=== PATIENT | female | born 1945 | race Caucasian/White ===

== ENCOUNTER → 2018-02-10 10:37 | Outpatient (CLI) | payer MEDICARE, OTHER, SELFPAY ==
[2018-02-10 12:21] LABS: Absolute Lymphocyte Count 0.89 X10^3/ul (0.83-4.51); Absolute Neutrophil Count 2.5 X10^3/uL (2.0-7.7); Basophil# 0.03 X10^3/uL; Basophil% 0.7 % (0-1); Eosinophil# 0.25 X10^3/uL; Eosinophils% 6.1 % (0-5); Hematocrit 44.1 % (37-47); Hemoglobin 15.7 g/dl (12.0-15.0); Lymphocyte # 0.89 X10^3/ul (4.0); Lymphocyte % 21.8 % (19-41); Mean Corp Hgb Conc 35.6 g/gl (32-36); Mean Corpuscular Volume 98.2 fL (81-99); Mean Platelet Vol. 10.5 fl (6.2-12.0); Monocyte# 0.37 X10^3/uL; Neutrophil # 2.54 X10^3/uL (2.7-7.7); Neutrophil % 62.2 % (47-70); Platelet Count 60 K/mm3 (150-450); RBC Distribution Width CV 13.6 % (11.6-14.6); RBC Distribution Width SD 47.8 fl (35.1-43.9); Red Blood Count 4.49 M/mm3 (4.2-5.4); White Blood Count 4.1 K/mm3 (4.4-11.0)
[2018-02-10 12:30] LABS: POSITIVE COUNT NO; POSITIVE DIFFERENTIAL NO; POSITIVE MORPHOLOGY NO
[2018-02-10 12:50] LABS: ALB/GLOB Ratio 0.8 RATIO (0.9-2.4); AST(SGOT) 37 U/L (15-37); Alanine Aminotransfer ALT/SGPT 22 U/L (13-56); Alkaline Phosphatase 106 U/L (45-117); Anion Gap 7 (5-15); BUN 10 mg/dL (7-18); BUN/Creat Ratio 13.6 RATIO (10-20); Calcium,Total 8.5 mg/dL (8.5-10.1); Chloride 106 mmol/L (98-107); Creatinine, Serum 0.73 mg/dL (0.55-1.02); EST Glomerular Filtration Rate 82 mL/min (>60); Est Glom Filt Rate - Afr Amer 99 mL/min (>60); Globulin 3.8 g/dL (2.2-4.2); Glucose 200 mg/dL (74-106); Potassium 3.6 mmol/L (3.5-5.1); Protein, Total 6.8 g/dL (6.4-8.2); Sodium Level 140 mmol/L (136-145); T4 Free Direct 1.05 ng/dL (0.76-1.46); Thyroid Stim Hormone (TSH) 5.91 uIU/mL (0.358-3.74)
== END ==
PROVIDERS: Family Provider Family Medicine; PCP Family Medicine; Visit Provider Family Medicine
DX: E03.9 Hypothyroidism, unspecified (principal); K74.60 Unspecified cirrhosis of liver; D69.6 Thrombocytopenia, unspecified
CPT/HCPCS: 36415; 80053; 84439; 84443; 85025

== ENCOUNTER → 2018-03-04 09:46 | Outpatient (CLI) | payer MEDICARE, OTHER, SELFPAY ==
--- NOTE | 2018-03-04 09:52 | ECHOD_ITS ---
Reason For Study: MURMUR Procedure This was a 2D Doppler, Color Flow transthoracic echocardiogram. Exam performed in department. Left Ventricle Normal size and thickness. The estimated ejection fraction is 65 %. Normal diastology for age. No regional wall motion abnormalities noted. Right Ventricle Normal size and thickness. Normal systolic function. Atria The left atrium is mildly enlarged. Normal right atrium. Normal atrial septum. Mitral Valve Mild diffuse mitral valve thickening. Mild mitral annular calcification extending into the posterior leaflet. Trivial mitral valve insufficiency. Tricuspid Valve Normal tricuspid valve. Mild (1+) tricuspid valve insufficiency. Right ventricular systolic pressure estimated to be 42 mmHg. Mild pulmonary hypertension. Aortic Valve Trisinus/trileaflet aortic valve. Moderate focal aortic valve thickening. Moderate focal aortic valve calcification. Moderate restriction of the aortic valve. Possible fusion b/w left and non- coronary cusps. Moderate aortic stenosis. Peak aortic valve gradient 46 mmHg. Mean aortic valve gradient 24 mmHg. Calculated aortic valve area (continuity equation) is 1.0 cm2. Pulmonic Valve Normal pulmonic valve. Mild (1+) pulmonic valve insufficiency. Great Vessels Normal aortic root. Normal arch. Normal inferior vena cava. Inferior vena cava collapse with sniff. Pericardium/Pleural No pericardial effusion. MMode/2D Measurements & Calculations LVIDd: 4.5 cm IVSd: 0.91 cm LVOT diam: 2.1 cm LVIDs: 2.7 cm LVPWd: 0.91 cm LVOT area: 3.4 cm2 RVDd: 3.4 cm FS: 39.7 % Ao root diam: 3.5 cm LAV(MOD-bp): 69.0 ml LA A4 area: 21.1 cm2 LA dimension: 3.9 cm LAV(MOD-bp) Indexed: 40.2 ml/m2 LAV(MOD-sp2): 66.5 ml LAV(MOD-sp4): 65.1 ml RA A4 area: 18.3 cm2 Doppler Measurements & Calculations MV E max rajesh: 100.2 cm/sec Lat Peak E' Rajesh: 9.1 cm/sec Med Peak E' Rajesh: 6.0 cm/sec MV A max rajesh: 66.5 cm/sec E/E' lat: 11.0 E/E' med: 16.6 MV E/A: 1.5 Ao V2 max: 338.4 cm/sec LV V1 max: 94.9 cm/sec SV(LVOT): 91.8 ml Ao max P.8 mmHg LV V1 max P.6 mmHg Ao V2 mean: 235.8 cm/sec LV V1 mean P.1 mmHg Ao mean P.4 mmHg LV V1 mean: 70.2 cm/sec Ao V2 VTI: 88.8 cm LV V1 VTI: 26.7 cm STEPHON(I,D): 1.0 cm2 STEPHON(V,D): 0.96 cm2 PA V2 max: 83.3 cm/sec PI end-d rajesh: 95.9 cm/sec TR max rajesh: 290.4 cm/sec TR max P.8 mmHg Interpretation Summary The estimated ejection fraction is 65 %. Normal diastology for age. The left atrium is mildly enlarged. Trivial mitral valve insufficiency. Mild (1+) tricuspid valve insufficiency. Right ventricular systolic pressure estimated to be 42 mmHg. Mild pulmonary hypertension. Moderate to severe aortic stenosis. Possible fusion b/w left and non-coronary cusps. Peak aortic valve gradient 46 mmHg. Mean aortic valve gradient 24 mmHg. Calculated aortic valve area (continuity equation) is 1.0 cm2. There is no comparison study available. Ordering Physician: Jorge L Sage Referring Physician: Ruben Lackey Performed By: Ginny Alexandra, BIB, RVT
== END ==
PROVIDERS: Family Provider Family Medicine; PCP Family Medicine; Visit Provider Family Medicine
DX: R01.1 Cardiac murmur, unspecified (principal); K76.6 Portal hypertension
CPT/HCPCS: 93306

== ENCOUNTER 2018-05-15 20:09 | Emergency (ER) | payer MEDICARE, OTHER, SELFPAY ==
[2018-05-15 20:10] VITALS: BP 110/50; PULSE 73; RESP 15; TEMP 36.9; BMI 30.1
--- NOTE | 2018-05-15 20:27 | ED.VISSUMM ---
- ER Visit Summary Date of Service: 05/15/18 Chief Complaint: Bilateral leg pain History of Present Illness: The patient is a 72 F who has pain in the bilateral legs. She states it started with the left leg. She has pain from the foot all the way up to the hip. It became swollen. She states that the symptoms then became prominent on the right-hand side. She also noted some swelling. She has not had a fever. She has no history of DVTs. No shortness of breath or CHF history. No fevers. She does have a history of extremity pain which was caused by neuropathy Physical Examination: Vital signs are reviewed. Bilateral leg exam reveals tenderness on both sides. No edema. No erythema. The exam is unremarkable Test Results: None performed Emergency Department Course and Treatment: Ultrasound is unavailable at this time. Patient has no signs of cellulitis. I will give her 1 oxycodone for pain here. She will come back tomorrow morning for a venous duplex ultrasound of her lower remedies Treatment Plan: Discharge Disposition: [] Impression: Bilateral leg pain This note was generated with [employer] dictation software. It may contain incorrect words, spelling, and punctuation that were not noted in review of the chart prior to signing ED Disposition - Plan for ED Patient: Chief Complaint: Other, Pain/Inj Referrals: Jorge L Sage MD [Primary Care Provider] -
--- NOTE | 2018-05-15 20:28 | ED.DEP ---
ED Disposition - Plan for ED Patient: Disposition: Home or Assisted Living Chief Complaint: Other, Pain/Inj Instructions: ED Chronic Pain Management Referrals: Jorge L Sage MD [Primary Care Provider] -
[2018-05-15] MEDS: oxyCODONE 5 MG Tablet PO (20:31)
[2018-05-15 20:51] VITALS: BP 143/79; PULSE 82; RESP 22; O2SAT 97
--- NOTE | 2018-05-15 20:52 | ED.RN ---
THIS NURSE REVIEWED D/C INSTRUCTIONS WITH PT. PT VERBALIZED UNDERSTANDING OF INSTRUCTIONS. PT DENIES FURTHER NEEDS OR QUESTIONS AT THIS TIME.
== END 2018-05-15 20:53 | disposition home or self-care (01) ==
LOC: ED 20:39
PROVIDERS: Emergency Provider Emergency Medicine; Family Provider Family Medicine; PCP Family Medicine
DX: M79.605 Pain in left leg (principal); M79.604 Pain in right leg
CPT/HCPCS: 99283

== ENCOUNTER → 2018-05-17 08:01 | Outpatient (CLI) | payer MEDICARE, OTHER, SELFPAY ==
--- NOTE | 2018-05-17 08:08 | VDLE_ITS ---
Reason For Study: LEG PAIN RIGHT LEFT GSV is normal. GSV is normal. CFV is compressible, spontaneous, phasic, CFV is compressible, spontaneous, phasic, competent and demonstrates normal competent, and demonstrates normal augmentation. augmentation. FV is compressible, spontaneous, phasic, FV is compressible, spontaneous, phasic, competent and demonstrates normal competent and demonstrates normal augmentation. augmentation. POP V is compressible, spontaneous, phasic, POP V is compressible, spontaneous, phasic, competent and demonstrates normal competent and demonstrates normal augmentation. augmentation. T/P Trunk is compressible. T/P Trunk is compressible. PTV is compressible. PTV is compressible. RT PerV is compressible. LT PerV is compressible. Procedure Exam performed in department. A preliminary report was called and/or faxed to Dr. Sage. Interpretation Summary Deep veins of the lower extremities are bilaterally patent and compressible segmentally. There is no evidence of deep vein thrombosis on either side. Valvular competence appears intact within the proximal deep venous systems bilaterally. The greater saphenous veins appear bilaterally patent and compressible segmentally. Ordering Physician: Cy Lozoya Referring Physician: Jorge L Sage Performed By: Aleida Forman RVT
== END ==
PROVIDERS: Family Provider Family Medicine; PCP Family Medicine; Visit Provider Emergency Medicine
DX: M79.605 Pain in left leg (principal); M79.604 Pain in right leg
CPT/HCPCS: 93970

== ENCOUNTER → 2018-05-24 11:16 | Outpatient (CLI) | payer MEDICARE, OTHER, SELFPAY ==
[2018-05-24 15:53] LABS: Absolute Lymphocyte Count 0.85 X10^3/ul (0.83-4.51); Absolute Neutrophil Count 2.8 X10^3/uL (2.0-7.7); Basophil# 0.02 X10^3/uL; Basophil% 0.5 % (0-1); Eosinophils% 4.7 % (0-5); Hematocrit 43.2 % (37-47); Hemoglobin 15.2 g/dl (12.0-15.0); Lymphocyte # 0.85 X10^3/ul (4.0); Lymphocyte % 20.1 % (19-41); Mean Corp Hgb Conc 35.2 g/gl (32-36); Mean Corpuscular Hgb 34.7 pg (27.0-32.0); Mean Corpuscular Volume 98.6 fL (81-99); Mean Platelet Vol. 10.5 fl (6.2-12.0); Monocyte# 0.38 X10^3/uL; Neutrophil # 2.77 X10^3/uL (2.7-7.7); Neutrophil % 65.5 % (47-70); Platelet Count 106 K/mm3 (150-450); RBC Distribution Width CV 13.9 % (11.6-14.6); RBC Distribution Width SD 48.9 fl (35.1-43.9); Red Blood Count 4.38 M/mm3 (4.2-5.4); White Blood Count 4.2 K/mm3 (4.4-11.0)
[2018-05-24 15:58] LABS: POSITIVE COUNT NO; POSITIVE DIFFERENTIAL NO; POSITIVE MORPHOLOGY NO
[2018-05-24 16:13] LABS: Hemoglobin A1c 7.4 % (4.2-6.3)
[2018-05-24 16:16] LABS: ALB/GLOB Ratio 0.7 RATIO (0.9-2.4); AST(SGOT) 45 U/L (15-37); Alanine Aminotransfer ALT/SGPT 26 U/L (13-56); Alkaline Phosphatase 115 U/L (45-117); Anion Gap 6 (5-15); BUN 8 mg/dL (7-18); BUN/Creat Ratio 9.6 RATIO (10-20); Calcium,Total 8.8 mg/dL (8.5-10.1); Chloride 104 mmol/L (98-107); Creatinine, Serum 0.83 mg/dL (0.55-1.02); EST Glomerular Filtration Rate 71 mL/min (>60); Est Glom Filt Rate - Afr Amer 86 mL/min (>60); Globulin 4.5 g/dL (2.2-4.2); Glucose 204 mg/dL (74-106); Potassium 3.6 mmol/L (3.5-5.1); Protein, Total 7.5 g/dL (6.4-8.2); Sodium Level 142 mmol/L (136-145); T4 Free Direct 1.59 ng/dL (0.76-1.46); Thyroid Stim Hormone (TSH) 1.66 uIU/mL (0.358-3.74)
== END ==
PROVIDERS: Family Provider Family Medicine; PCP Family Medicine; Visit Provider Family Medicine
DX: K74.60 Unspecified cirrhosis of liver (principal); E11.65 Type 2 diabetes mellitus with hyperglycemia; R60.9 Edema, unspecified
CPT/HCPCS: 36415; 80053; 83036; 84439; 84443; 85025

== ENCOUNTER → 2018-05-28 08:54 | Outpatient (CLI) | payer MEDICARE, OTHER, SELFPAY ==
--- NOTE | 2018-05-28 08:58 | US_ITS ---
STUDY: ABDOMINAL ULTRASOUND - RIGHT UPPER QUADRANT REASON FOR VISIT: Female, 72 years old. Elevated LFTs TECHNIQUE: Ultrasound evaluation of the right upper quadrant was performed with real-time and static martinez-scale imaging. TECHNICAL QUALITY: Limited. Examination limited due to the patient?s condition. COMPARISON: None. FINDINGS: Liver: The liver measures 14.1 cm. There is a heterogeneous echogenicity of the liver. The bile ducts are within normal limits. There is hepatic color flow. The direction of portal flow is hepatopetal. There is no demonstrated mass lesion. Gallbladder: The patient is status post cholecystectomy. Common Bile Duct (C.B.D.): The common bile duct was not visualized. Pancreas: Normal size of the head, body and tail of the pancreas. There is normal echogenicity of the pancreas. There is no demonstrated pancreatic mass or cyst. Right Kidney: Normal size of the right kidney. The right kidney measures 10.2 x 5.1 x 4.4 cm. Normal renal cortex. The right cortex measures 1.4 cm. There is no demonstrated renal mass or cyst. There is no right hydronephrosis. US/Liver IMPRESSION: Heterogeneous liver, no discrete lesion. Previous cholecystectomy Electronically Signed: Damian Siegel MD at 12:08 EDT , Service support ,
== END ==
PROVIDERS: Family Provider Family Medicine; PCP Family Medicine; Visit Provider Internal Medicine Gastroenterology
DX: K74.60 Unspecified cirrhosis of liver (principal)
CPT/HCPCS: 76705

== ENCOUNTER → 2018-10-14 09:45 | Outpatient (CLI) | payer MEDICARE, OTHER, SELFPAY ==
--- NOTE | 2018-10-14 14:22 | PFTCOMP ---
COMPLETE PULMONARY FUNCTION TEST INTERPRETATION Brief HPI: Patient is a 73 year old female, currently under the care of Dr. Sage, who presents to [facility] for complete pulmonary function tests secondary to diagnosis of dyspnea. Respiratory therapist reports good effort and reproducible results. Interpretation: Forced expiration spirometry shows no large airways obstructive ventilatory defect with an FEV1 of 104% predicted. There is no significant bronchodilator response by strict ATS criteria. Spirograms are of good quality and plateau slowly, indicating slowly emptying areas of the lungs. The respiratory flow volume loop shows decreased expiratory flow rates at high lung volumes consistent with small airways obstruction. Lung volumes by body plethysmography show a normal total lung capacity at 4.43 L, 101% predicted. All other lung volumes are within normal limits. Diffusion capacity by carbon monoxide is decreased at 42% predicted. The airway resistance is normal. No previous pulmonary function tests were available for review. Impression: Isolated reduction in diffusion capacity consistent with a possible pulmonary vascular disorder. Consider echocardiogram if not completed previously.
--- OUTSIDE RECORDS SUMMARY | 2018-11-30 03:42 | XMS RPT_ITS ---
:1945 Author Organization [facility] Support Name Relationship Address Phone RUTH ELLIOTT Unavailable [address] + [place] [address] HUSSAIN ELLIOTT Unavailable [address] [facility] + [place] [address] R Unavailable Unavailable Unavailable EARLRUTH Unavailable [address] + [place] [address] HUSSAIN ELLIOTT Unavailable [address] + [place] [address] R Unavailable Unavailable Unavailable EARL RUTH Unavailable [address] + [place] [address] HUSSAIN ELLIOTT Unavailable [address] [facility] + [place] [address] R Unavailable Unavailable Unavailable EARLRUTH Unavailable [address] + [place] [address] HUSSAIN ELLIOTT Unavailable [address] [facility] + [place] [address] R Unavailable Unavailable Unavailable RUTH GONZALEZ Unavailable [address] + [place] [address] R Unavailable Unavailable Unavailable RUTH GONZALEZ Unavailable [address] + [place] [address] R Unavailable Unavailable Unavailable RUTH GONZALEZ Unavailable [address] + [place] [address] R Unavailable Unavailable Unavailable RUTH GONZALEZ Unavailable [address] + [place] [address] R Unavailable Unavailable Unavailable RUTH GONZALEZ Unavailable [address] + [place] [address] R Unavailable Unavailable Unavailable LISA, RUTH Unavailable [address] + [place] [address] R Unavailable Unavailable Unavailable R Unavailable Unavailable Unavailable ARIES, CLIVE Unavailable . + [place] [address] LISA RUTH Unavailable [address] + [place] [address] R Unavailable Unavailable Unavailable ARIES, CLIVE Unavailable [address] [place] + [place] [address] LISA RUTH Unavailable [address] + [place] [address] R Unavailable Unavailable Unavailable ARIES, CLIVE Unavailable . + [place] [address] LISA RUTH Unavailable [address] + [place] [address] R Unavailable Unavailable Unavailable ARIES, CLIVE Unavailable Unavailable + [place] [address] LISA RUTH Unavailable [address] + [place] [address] R Unavailable Unavailable Unavailable ARIES, CLIVE Unavailable . + [place] [address] LISA RUTH Unavailable [address] + [place] [address] R Unavailable Unavailable Unavailable ARIES, CLIVE Unavailable [address] [place] + [place] [address] LISA RUTH Unavailable [address] + [place] [address] R Unavailable Unavailable Unavailable ARIES, CLIVE Unavailable [address] [place] + [place] [address] LISA RUTH Unavailable [address] + [place] [address] R Unavailable Unavailable Unavailable Care Team Providers Name Role Phone Donal Christie Attending Unavailable Jorge L Sage Referring Unavailable Ernst Anderson D.O. Attending Unavailable Jorge L Sage Referring Unavailable Jorge L Sage Attending Unavailable Jorge L Sage Primary Care Unavailable Ruben Lackey Attending Unavailable Ruben Lackey Referring Unavailable Jorge L Sage Primary Care Unavailable Jorge L Sage Attending Unavailable Alona, Jorge L Primary Care Unavailable Alona, Jorge L Attending Unavailable Alona, Jorge L Primary Care Unavailable Sharona Andres Torrez Attending Unavailable Alona, Jorge L Referring Unavailable Alona, Jorge L Primary Care Unavailable Amari Guzman Attending Unavailable Alona, Jorge L Referring Unavailable Alexis Martinez Attending Unavailable Alona, Jorge L Primary Care Unavailable Lowe, Cy Attending Unavailable Lowe, Cy Attending Unavailable Lowe, Cy Referring Unavailable Alona, Jorge L Primary Care Unavailable Alona, Jorge L Attending Unavailable Alona, Jorge L Primary Care Unavailable Ruben Lackey Attending Unavailable Ruben Lackey Referring Unavailable Alona, Jorge L Primary Care Unavailable Katerin Ruth Attending Unavailable MeganAmari segura Attending Unavailable Alona, Jorge L Referring Unavailable Alona, Jorge L Primary Care Unavailable Alona, Jorge L Attending Unavailable Alona, Jorge L Referring Unavailable Alona, Jorge L Attending Unavailable Alona, Jorge L Referring Unavailable Alona, Jorge L Primary Care Unavailable PROBLEMS PROBLEMS DATE TYPE CONDITION / CODE ATTENDING STATUS SOURCE 11/03/2018 Unknown R06.00 - Dyspnea, Alona, Jorge L Active [facility] unspecified / Community R06.00(ICD-10) Hospital Repository 09/10/2018 Unknown R06.02 - Shortness Megan, Childs Active [place] of breath / Community R06.02(ICD-10) Hospital Repository 09/10/2018 Unknown I35.0 - Megan, Amari Active [facility] Nonrheumatic [facility] aortic (valve) Hospital stenosis / Repository I35.0(ICD-10) 09/10/2018 Unknown I10 - Essential Megan, Childs Active [facility] (primary) [facility] hypertension / Hospital I10(ICD-10) Repository 02/25/2018 Unknown E03.9 - Alona Jorge L Active [place] Hypothyroidism, [facility] unspecified / Hospital E03.9(ICD-10) Repository 03/26/2018 Unknown R01.1 - Cardiac Alexis Martinez Active [place] murmur, [facility] unspecified / Hospital R01.1(ICD-10) Repository PROCEDURES PROCEDURES No Procedure Records FoundRESULTS RESULTS CHEST PA AND LATERAL Observed: 11/03/2018 Status: F Source: [place] 3:03 PM [facility] Imaging Services [address] [place] [address] Chest PA and Lateral MR#: [id number] Acct: [id number] Name: PEPPER ELLIOTT Rep #: [id number] : 1945 F 73 From: Celio Alexander MD PCP: Jorge L Sage MD Status: REG CLI Study: Chest PA and Lateral Date of Exam: 11/03/18 Exam# [id number] Ordering Dr: Jorge L Sage MD STUDY: X-RAY CHEST REASON FOR EXAM: Female, 73 years old. Shortness of breath, chest pain on deep inspiration. TECHNIQUE: PA and lateral chest COMPARISON: None. FINDINGS: The lungs are clear. Mild hyperlucency may be a factor of technique and good inspiratory effort. Correlate smoking history for possible mild COPD. Normal cardiomediastinal silhouette, mikal and pleural margins. No acute osseous or upper abdominal process. Mild thoracic kyphosis. RAD/Chest PA and Lateral IMPRESSION: No acute cardiopulmonary process. Electronically Signed: Celio Alexander MD at 15:34 EST Tel , Service support , CC: Jorge L Sage MD [employer] Supervisor: Signed PULMONARY FUNCTION Observed: 10/15/2018 Status: F Source: [facility] REPORT COMP 6:02 AM [facility] REPOSITORY [facility] Pulmonary Services/Neurology [address] [place] [address] MR#: [id number] Acct: [id number] Name: PEPPER ELLIOTT Rep #: [id number] : 1945 73 From: Donal Christie MD Referring Dr: Jorge L Sage MD Status: REG CLI Ordering Dr: Date: Location: [facility] Sex: F C COMPLETE PULMONARY FUNCTION TEST INTERPRETATION Brief HPI: Patient is a 73 year old female, currently under the care of Dr. Sage, who presents to [facility] for complete pulmonary function tests secondary to diagnosis of dyspnea. Respiratory therapist reports good effort and reproducible results. Interpretation: Forced expiration spirometry shows no large airways obstructive ventilatory defect with an FEV1 of 104% predicted. There is no significant bronchodilator response by strict ATS criteria. Spirograms are of good quality and plateau slowly, indicating slowly emptying areas of the lungs. The respiratory flow volume loop shows decreased expiratory flow rates at high lung volumes consistent with small airways obstruction. Lung volumes by body plethysmography show a normal total lung capacity at 4.43 L, 101% predicted. All other lung volumes are within normal limits. Diffusion capacity by carbon monoxide is decreased at 42% predicted. The airway resistance is normal. No previous pulmonary function tests were available for review. Impression: Isolated reduction in diffusion capacity consistent with a possible pulmonary vascular disorder. Consider echocardiogram if not completed previously. 10/15/18 0602 <Electronically signed by Donal Christie MD> Date Donal Christie MD CC: Donal Christie MD; Jorge L Sage MD Date Dictated: 10/14/181421 Date Transcribed: 10/14/181421 [employer] Supervisor: JUAN Signed CARDIOLOGY VISIT Observed: 09/10/2018 Status: F Source: [place] REPORT 12:05 PM [facility] REPOSITORY [facility] [address] [place] [address] OFFICE VISIT Date of Service: 09/10/18 MR#: [id number] Acct: [id number] Name: PEPPER ELLIOTT Rep #: [id number] : 1945 Provider: Amari Guzman MD Age/Sex: 73/F [place] [facility] [place] Signed [facility] Chief Complaint: Follow up Details: PEPPER ELLIOTT, is a 73 F who presents to the office today for a follow-up visit. She is a lady with a history of liver cirrhosis, scleroderma, diabetes mellitus. She was recently diagnosed with aortic valve stenosis. She denies any dizziness or diaphoresis or near syncope or syncope she has been short of breath with exertion. She has been compliant with her medications. She has not had any palpitations recently. She also denies any neck arm or jaw discomfort suggest angina. She tells me that she has not had any pulmonary function tests. Her physical exam today demonstrates clear lung coffey regular rate and rhythm and no pedal edema her echocardiogram was reviewed. Intake Vital Signs09/10/18 Height 5 ft 1 in Intake Visit Reasons: 6 M FU Allergies latex Adverse Reaction (Unknown, Verified 09/10/18 10:15) Unknown nadolol Adverse Reaction (Unknown, Verified 09/10/18 10:15) Swelling Medications AMILoride/Hydrochlorothiazide [MODURETIC 5-50 MG Tab] 1 tab PO DAILY 09/14/14 [History Confirmed 09/10/18] lactulose 10 gram/15 mL oral solution 20 g PO BID 03/17/18 [History Confirmed 09/10/18] levothyroxine 100 mcg tablet 100 mcg PO QDAY 03/17/18 [History Confirmed 09/10/18] propranolol ER 60 mg capsule,24 hr,extended release 60 mg PO QDAY 03/17/18 [History Confirmed 09/10/18] glimepiride 1 mg tablet 1 mg PO QAM 09/10/18 [History Confirmed 09/10/18] [facility] Medical History Liver cirrhosis secondary to GARCIA (Chronic) Secondary pulmonary arterial hypertension (Chronic) Non-rheumatic aortic stenosis (Chronic) Essential (primary) hypertension (Chronic) Shortness of breath (Chronic) Anemia (Chronic) Arthritis (Chronic) Asthma (Chronic) Carpal tunnel syndrome (Chronic 1986) Chronic fatigue syndrome (Chronic) Cirrhosis, non-alcoholic (Chronic) Cognitive impairment (Chronic) Colitis (Chronic) Diabetes mellitus (Chronic) Esophageal varices with bleeding (Chronic) GERD (gastroesophageal reflux disease) (Chronic) Gallstone (Chronic) Headache (Chronic) Hives (Chronic) Hypothyroidism (Chronic) Liver disease (Chronic) Neuropathy (Chronic) Osteoarthritis (Chronic) Portal hypertension (Chronic) Systolic murmur (Chronic) Thrombocytopenia (Chronic) Vertigo (Chronic) Surgical History History of carpal tunnel release (Resolved) Hx of cholecystectomy (Resolved) Family History Mother CAD (coronary artery disease) Breast cancer Sister Breast cancer Aunt Breast cancer Social History Smoking Status: Former smoker alcohol intake: never caffeine: Yes Type: coffee Number of servings: 5 what type of physical activity do you participate in: none ROS Const Const: Positive for fatigue; negative for weakness, difficulty sleeping, frequent falls, excessive sweating or headache(s) Eyes Eyes: Negative for loss of peripheral vision, transient loss of vision, blurry vision, tunnel vision or double vision ENT ENT: Negative for headache(s), dizziness, Nosebleed/epistaxis or balance problems Cardio Chest Pain: No Palpitations: No Edema: None Muscle aches with walking: None Resp Respiratory: Positive for SOB with activity and SOB at rest; negative for SOB orthopnea\SOB lying down, paroxysmal nocturnal dyspnea or Cough Additional Details: C/O increase SOB since last OV. GI GI: Negative nausea, heartburn, black,tarry stools or vomiting : Negative for hematuria Musc Musc: Negative for balance problems, muscle aches/ myalgia, muscle weakness or joint pain Skin Skin: Negative non-healing lesions, unusual bruising or rash Neuro Neuro: Negative for weakness, frequent falls, headache(s), blurry vision, double vision, dizziness, lightheadedness, orthostatic symptoms, near syncope, syncope or lack of coordination [place] Hematologic/Lymphatic: Negative for easy bruising or easy bleeding Endo Endo: Positive for fatigue; negative for excessive sweating or increased thirst/drinking Psych Psych: Negative for anxiety or depression Allergy Allergy/Immunology: Negative for hives, Negative for rash Cardiology Exam Const Appearance: cooperative, healthy appearing, well developed, well groomed and no acute distress Nutritional Appearance: well nourished and average body habitus Orientation: alert, awake and oriented x3 Head Head: normal to inspection, normocephalic and atraumatic Ears: hearing grossly normal bilaterally and external ears normal Nose: external nose normal, nasal mucous membranes and turbinates normal, nares normal, septum normal, no nasal discharge Face and Sinus: face symmetric Mouth: oral mucosae normal, tongue normal, oropharynx normal and moist mucous membranes Teeth and gingiva: dentition normal Throat: posterior oropharynx normal, tonsils normal and uvula midline Eyes General: appearance normal, both eyes and all related structures Eyelids: eyelids normal Conjunctivae: conjunctivae normal Pupils: PERRL, normal by confrontation and accommodation normal EOM: EOM intact bilaterally Neck Neck: normal visual inspection, trachea midline and no JVD JVD: +5 Carotids: normal carotid upstroke and bounding pulses Chest Chest inspection: normal inspection of the chest, symmetric chest movement and normal respiratory effort Auscultation: Bilateral: Clear to Auscultation Cardio Palpation: normal PMI Rate: regular rate Rhythm: regular rhythm Heart sounds: S1 normal, S2 normal and normal, physiologic split S2; negative rub, gallop or murmur GI GI: normal to inspection, soft, no hepatosplenomegaly and bowel sounds present Neuro General: alert, awake, oriented x3, no focal sensory deficit, gait normal and moves all extremities Skin Skin: no rashes or lesions noted Extremities Pulses: Normal: Right Femoral Pulse, Left Femoral Pulse, Right Dorsalis Pedis Pulse, Left Dorsalis Pedis Pulse, Right Posterior Tibial Pulse, Left Posterior Tibial Pulse, Right Radial Pulse, Left Radial Pulse Lower Extremity Edema: None: Bilateral Musculoskel Musculoskeletal: No joint tenderness Psych Psychological: normal affect Assessment AND Plan 1. Non-rheumatic aortic stenosis I35.0 Plan She appears to have minimally symptomatic moderate aortic stenosis. Her valve area is 1.0 cm square though her mean gradient is 24 mmHg. My recommendation at this time will be for us to continue watchful waiting and repeat echocardiogram in approximately 3-6 months. Her pulmonary artery pressures also do not appear to be significantly elevated she is on a low-dose diuretic. 2. Essential (primary) hypertension I10 Plan She does have a history of hypertension and will continue to monitor her and manage her with her current medications without as making any changes. 3. Shortness of breath R06.02 Plan She does have shortness of breath. I suspect the etiology of the above is multifactorial I would recommend that we obtain a chest x-ray and CT scan and may be pulmonary function test. I would prefer the above to you and will see her again in approximately 4 months. Plan Detail Follow Up 4 Months (r) Coding Level of Care Code Off vis,est,level 4 Diagnoses Non-rheumatic aortic stenosis I35.0 Essential (primary) hypertension I10 Shortness of breath R06.02 Coding Level of Care Code Off vis,est,level 4 Diagnoses Non-rheumatic aortic stenosis I35.0 Essential (primary) hypertension I10 Shortness of breath R06.02 09/10/18 1205 <Electronically signed by Amari Guzman MD> Date [facility] Signature: Date (if applicable) CC: Jorge L Sage MD LIVER Observed: 05/28/2018 Status: F Source: [place] 8:58 AM [facility] REPOSITORY [facility] Imaging Services [address] [place] [address] Liver MR#: [id number] Acct: [id number] Name: PEPPER ELLIOTT Rep #: [id number] : 1945 F 72 From: Daniel Siegel MD PCP: Jorge L Sage MD Status: REG CLI Study: Liver Date of Exam: 05/28/18 Exam# [id number] Ordering Dr: Ruben Lackey MD STUDY: ABDOMINAL ULTRASOUND - RIGHT UPPER QUADRANT REASON FOR VISIT: Female, 72 years old. Elevated LFTs TECHNIQUE: Ultrasound evaluation of the right upper quadrant was performed with real-time and static martinez-scale imaging. TECHNICAL QUALITY: Limited. Examination limited due to the patient?s condition. COMPARISON: None. FINDINGS: Liver: The liver measures 14.1 cm. There is a heterogeneous echogenicity of the liver. The bile ducts are within normal limits. There is hepatic color flow. The direction of portal flow is hepatopetal. There is no demonstrated mass lesion. Gallbladder: The patient is status post cholecystectomy. Common Bile Duct (C.B.D.): The common bile duct was not visualized. Pancreas: Normal size of the head, body and tail of the pancreas. There is normal echogenicity of the pancreas. There is no demonstrated pancreatic mass or cyst. Right Kidney: Normal size of the right kidney. The right kidney measures 10.2 x 5.1 x 4.4 cm. Normal renal cortex. The right cortex measures 1.4 cm. There is no demonstrated renal mass or cyst. There is no right hydronephrosis. US/Liver IMPRESSION: Heterogeneous liver, no discrete lesion. Previous cholecystectomy Electronically Signed: Damian Siegel MD at 12:08 EDT , Service support , CC: Jorge L Sage MD; Ruben Lackey [employer] Supervisor: Signed CBC W/DIFF, AUTOMATED Collected: 05/24/2018 Status: F Source: [place] 11:18 AM [facility] REPOSITORY TYPE CODE TESTS RESULT OUT OF RANGE REFERENCE UNITS LAB L100.1000 4.4-11.0 K/mm3 Low WBC 4.2 LAB L100.1200 4.2-5.4 M/mm3 Normal RBC 4.38 LAB L100.1300 12.0-15.0 g/dl High HGB 15.2 LAB L100.1400 37-47 % Normal HCT 43.2 LAB L100.1500 81-99 fL Normal MCV 98.6 LAB L100.1600 27.0-32.0 pg High MCH 34.7 LAB L100.1700 32-36 g/gl Normal MCHC 35.2 LAB L100.1810 11.6-14.6 % Normal RDW CV 13.9 LAB L100.1820 35.1-43.9 fl High RDW SD 48.9 LAB L100.1900 150-450 K/mm3 Low PLT 106 LAB L100.2000 6.2-12.0 fl Normal MPV 10.5 LAB L100.2100 47-70 % Normal NEUT% 65.5 LAB L100.2200 19-41 % Normal LY% 20.1 LAB L100.2300 0-10 % Normal MONO% 9.0 LAB L100.2400 0-5 % Normal EO% 4.7 LAB L100.2500 0-1 % Normal BASO% 0.5 LAB L100.2550 0.0-0.9 % Normal IM GRAN % 0.200 Result Comment: IG% - Immature Granulocytes (promyelocytes, myelocytes and metamyelocytes) > 1% indicates that a LEFT SHIFT is Present. LAB L100.2620 2.0-7.7 X10 3/uL Normal Absolute Neut 2.8 LAB L100.2720 0.83-4.51 X10 3/ul Normal Absolute Lymph 0.85 Performed By: #### L100.0100 #### [facility] Laboratory [address] [place], [address] HEMOGLOBIN A1C Collected: 05/24/2018 Status: F Source: [place] 11:18 AM [facility] REPOSITORY TYPE CODE TESTS RESULT OUT OF RANGE REFERENCE UNITS LAB L501.9985 4.2-6.3 % High HGB A1C 7.4 Performed By: #### L501.9985 #### [facility] Laboratory [address] [place], [address] COMPREHENSIVE METABOLIC Collected: 05/24/2018 Status: F Source: [facility] 11:18 AM [facility] REPOSITORY TYPE CODE TESTS RESULT OUT OF RANGE REFERENCE UNITS LAB L501.0100 74-106 mg/dL High GLU 204 Result Comment: Glucose result greater than or equal to 200 mg/dL suggests DIABETES MELLITUS per A.D.A. criteria. Please note revised GLUCOSE reference range effective 2017. LAB L501.1000 7-18 mg/dL Normal BUN 8 LAB L501.1100 0.55-1.02 mg/dL Normal CREAT,SERUM 0.83 Result Comment: The validity of the calculated GFR AND GFRAA in patients over 70 years has not been determined. Clinical correlation is essential. LAB L501.1110 >60 mL/min Normal EST GFR 71 Result Comment: Non- GFR Calc LAB L501.1115 >60 mL/min Normal EST GFR - AA 86 Result Comment: GFR Calc LAB L501.1300 10-20 RATIO Low BUN/CRE 9.6 LAB L501.1500 6.4-8.2 g/dL Normal T PROT 7.5 LAB L501.1800 3.2-5.0 g/dL Low ALB 3.0 LAB L501.1950 2.2-4.2 g/dL High GLOB 4.5 LAB L501.2000 0.9-2.4 RATIO Low A/G 0.7 LAB L501.2200 8.5-10.1 mg/dL Normal CA 8.8 LAB L501.4100 15-37 U/L High AST 45 LAB L501.4305 45-117 U/L Normal ALK P 115 LAB L501.4405 13-56 U/L Normal ALT 26 LAB L501.4600 0.20-1.00 mg/dL High T BILI 3.20 LAB L501.5300 136-145 mmol/L Normal NA 142 LAB L501.5600 3.5-5.1 mmol/L Normal K 3.6 LAB L501.5900 98-107 mmol/L Normal CL 104 LAB L501.6100 21.0-32.0 mmol/L Normal CO2 32.0 LAB L501.6200 5-15 Normal GAP 6 Performed By: #### L500.4050, L501.9520, L506.0400 #### [facility] [address] [place], [address] THYROID STIM HORMONE Collected: 05/24/2018 Status: F Source: [place] (TSH) 11:18 AM [facility] REPOSITORY TYPE CODE TESTS RESULT OUT OF RANGE REFERENCE UNITS LAB L501.9520 0.358-3.74 uIU/mL Normal TSH 1.66 Performed By: #### L500.4050, L501.9520, L506.0400 #### [facility] [address] [place], [address] T4 FREE DIRECT Collected: 05/24/2018 Status: F Source: [place] 11:18 AM [facility] REPOSITORY TYPE CODE TESTS RESULT OUT OF REFERENCE UNITS RANGE LAB L506.0400 0.76-1.46 ng/dL High T4 FREE 1.59 DIRECT Performed By: #### L500.4050, L501.9520, L506.0400 #### [facility] [address] [place], [address] VENOUS DUPLEX LOWER Observed: 05/18/2018 Status: F Source: [place] EXTREMITY 12:24 PM [facility] REPOSITORY [facility] Cardiovascular Services [address] [place] [address] Venous Duplex US - Trav Extrem 05/17/18 0820 MR#: [id number] Acct: [id number] Name: PEPPER ELLIOTT Rep #: [id number] : 1945 72 From: Gustavo Macias MD Attending Dr: Cy Lozoya MD Status: REG CLI Ordering Dr: Cy Lozoya MD Date: 05/17/18 Location: [facility] Sex: F C Admitted: Reason For Study: LEG PAIN RIGHT LEFT GSV is normal. GSV is normal. CFV is compressible, spontaneous, phasic, CFV is compressible, spontaneous, phasic, competent and demonstrates normal competent, and demonstrates normal augmentation. augmentation. FV is compressible, spontaneous, phasic, FV is compressible, spontaneous, phasic, competent and demonstrates normal competent and demonstrates normal augmentation. augmentation. POP V is compressible, spontaneous, phasic, POP V is compressible, spontaneous, phasic, competent and demonstrates normal competent and demonstrates normal augmentation. augmentation. T/P Trunk is compressible. T/P Trunk is compressible. PTV is compressible. PTV is compressible. RT PerV is compressible. LT PerV is compressible. Procedure Exam performed in department. A preliminary report was called and/or faxed to Dr. Sage. Interpretation Summary Deep veins of the lower extremities are bilaterally patent and compressible segmentally. There is no evidence of deep vein thrombosis on either side. Valvular competence appears intact within the proximal deep venous systems bilaterally. The greater saphenous veins appear bilaterally patent and compressible segmentally. Ordering Physician: Cy Lozoya Referring Physician: Jorge L Sage Performed By: Aleida Forman RVT 05/18/18 1224 Date Gustavo Macias MD CC: Cy Lozoya MD; Jorge L Sage MD Date Dictated: 05/17/18819 Date Transcribed: 05/18/18 1224 [employer] Supervisor: Signed EMERGENCY DEPARTMENT Observed: 05/15/2018 Status: F Source: [place] SUMMARY 8:28 PM [facility] REPOSITORY [facility] Medical Records Department [address] [place] [address] Emergency Department Summary 05/15/182026 MR#: [id number] Acct: [id number] Name: PEPPER ELLIOTT Rep #: [id number] : 1945 72 From: Cy Lozoya MD PCP: Jorge L Sage MD Status: PRE ER - ER Visit Summary Date of Service: 05/15/18 Chief Complaint: Bilateral leg pain History of Present Illness: The patient is a 72 F who has pain in the bilateral legs. She states it started with the left leg. She has pain from the foot all the way up to the hip. It became swollen. She states that the symptoms then became prominent on the right-hand side. She also noted some swelling. She has not had a fever. She has no history of DVTs. No shortness of breath or CHF history. No fevers. She does have a history of extremity pain which was caused by neuropathy Physical Examination: Vital signs are reviewed. Bilateral leg exam reveals tenderness on both sides. No edema. No erythema. The exam is unremarkable Test Results: None performed Emergency Department Course and Treatment: Ultrasound is unavailable at this time. Patient has no signs of cellulitis. I will give her 1 oxycodone for pain here. She will come back tomorrow morning for a venous duplex ultrasound of her lower remedies Treatment Plan: Discharge Disposition: [] Impression: Bilateral leg pain This note was generated with [employer] dictation software. It may contain incorrect words, spelling, and punctuation that were not noted in review of the chart prior to signing ED Disposition - Plan for ED Patient: Chief Complaint: Other, Pain/Inj Referrals: Jorge L Sage MD [Primary Care Provider] - What to do if you have Problems For any increased pain, shortness of breath, bleeding, nausea or vomiting, chest pain, or any unexpected problems, contact your Primary Care Provider. Call [facility] ([phone]) or report to the closest Emergency Room. Call 911 if necessary. 05/15/182027 <Electronically signed by Cy Lozoya MD> Date Cy Lozoya MD Cosigner Signature (If Indicated): Date CC: Jorge L Sage MD DISCHARGE INSTRUCTION Observed: 05/15/2018 Status: F Source: [place] 8:28 PM [facility] Medical Records Department [address] [place] [address] Discharge Instruction 05/15/182027 MR#: [id number] Acct: [id number] Name: PEPPER ELLIOTT Rep #: [id number] : 1945 72 From: Cy Lozoya MD PCP: Jorge L Sage MD Status: PRE ER ED Disposition - Plan for ED Patient: Disposition: Home or Assisted Living Chief Complaint: Other, Pain/Inj Instructions: ED Chronic Pain Management Referrals: Jorge L Sage MD [Primary Care Provider] - What to do if you have Problems For any increased pain, shortness of breath, bleeding, nausea or vomiting, chest pain, or any unexpected problems, contact your Primary Care Provider. Call [facility] ([phone]) or report to the closest Emergency Room. Call 911 if necessary. 05/15/182027 <Electronically signed by Cy Lozoya MD> Date Cy Lozoya MD Cosigner Signature (If Indicated): Date CC: Jorge L Sage MD CARDIOLOGY VISIT Observed: 03/18/2018 Status: F Source: [place] REPORT 8:53 AM [facility] REPOSIT[facility] [address] [place] [address] OFFICE VISIT Date of Service: 03/17/18 MR#: [id number] Acct: [id number] Name: PEPPER ELLIOTT Rep #: [id number] : 1945 Provider: CALLI Tabor Age/Sex: 72/F Location: [facility] Status: Signed HPI HPI Chief Complaint: Initial visit for evaluation of heart murmur with confirmation by echo Details: PEPPER ELLIOTT, is a 72 F who presents to the office today for a cardiovascular outpatient follow-up. She was recently diagnosed with aortic valve stenosis via echocardiogram in March 2018. She also has a history of liver cirrhosis, scleroderma, diabetes, and vertigo. Pt denies chest, arm, jaw, or neck discomfort. Her exercise tolerance is stable. Pt denies symptoms of palpitations, lightheadedness, dizziness, near syncopal or syncopal episodes. Pt denies claudication issues. Pt. denies orthopnea, PND, fever, chills, blood in urine, blood in stool, myalgia, or unexplainable fatigue. She states edema has fluctuated over the last month. Pt. states SOB with sitting and with exertion, but is unsure if it has worsened or changed. She states losing muscle strength in her chest that she feels causes decrease in arm strength. Intake Vital Signs03/17/18 Height 5 ft 2 in 03/17/18 Weight: 160 lb 03/17/18 Body Mass Index (BMI) 29.2 03/17/18 Blood Pressure 122/72 Intake Visit Reasons: Shortness of breath Manager Music Required: No Accompanied by: none Is patient in pain?: No Allergies No Known Allergies Allergy (Verified 03/17/18 16:11) Medications AMILoride/Hydrochlorothiazide [MODURETIC 5-50 MG Tab] 1 tab PO DAILY 09/14/14 [History Confirmed 03/17/18] dicyclomine 20 mg tablet 20 mg PO Q6H 03/17/18 [History Confirmed 03/17/18] glimepiride 4 mg tablet 4 mg PO BID tab 03/17/18 [History Confirmed 03/17/18] lactulose 10 gram/15 mL oral solution 20 g PO BID 03/17/18 [History Confirmed 03/17/18] levothyroxine 100 mcg tablet 100 mcg PO QDAY 03/17/18 [History Confirmed 03/17/18] propranolol ER 60 mg capsule,24 hr,extended release 60 mg PO QDAY 03/17/18 [History Confirmed 03/17/18] Ejection fraction %: 65 to 70 PFSH Surgical History History of carpal tunnel surgery (Resolved) FH: cholecystectomy (Resolved) Family History Mother CAD (coronary artery disease) Social History Smoking Status: Never smoker alcohol intake: never caffeine: Yes Type: coffee Number of servings: 5 what type of physical activity do you participate in: none ROS Const Const: Negative for weakness, body ache, fever(s), chills or fatigue ENT ENT: Negative for dizziness Cardio Chest Pain: No Palpitations: No Edema: None Muscle aches with walking: None Resp Respiratory: Positive for SOB with activity; negative for SOB at rest, SOB orthopnea\SOB lying down or paroxysmal nocturnal dyspnea GI GI: Negative nausea, black,tarry stools, bright, red blood in stools or vomiting blood/hematemesis : Negative for hematuria or frequent nighttime urination/ nocturia Musc Musc: Positive for muscle weakness (arms); negative for muscle aches/ myalgia Skin Skin: Negative non-healing lesions or rash Neuro Neuro: Negative for lightheadedness, near syncope, syncope, orthostatic symptoms, weakness or dizziness Endo Endo: Negative for fatigue Allergy Allergy/Immunology: Negative for rash Cardiology Exam Const Appearance: cooperative, healthy appearing, comfortable and no acute distress Orientation: alert, awake and oriented x3 Head Head: normal to inspection Ears: hearing grossly normal bilaterally Nose: external nose normal Face and Sinus: face symmetric Mouth: oral mucosae normal Eyes General: appearance normal, both eyes and all related structures Eyelids: eyelids normal Neck Neck: no JVD and normal visual inspection Carotids: normal carotid upstroke Chest Chest inspection: normal inspection of the chest and normal respiratory effort; negative cough Auscultation: Bilateral: Clear to Auscultation Cardio Rate: regular rate Rhythm: regular rhythm Heart sounds: S2 normal and murmur; negative rub or gallop Murmur: Grade 3/6 and RLSB GI GI: normal to inspection Neuro General: alert, awake, oriented x3 and CN's II-XI intact bilaterally Skin Skin: no rashes or lesions noted Extremities Pulses: Normal: Right Posterior Tibial Pulse, Left Posterior Tibial Pulse, Right Radial Pulse, Left Radial Pulse Lower Extremity Edema: None: Bilateral Psych Psychological: normal affect Supplemental Info Echocardiogram from March 2018 showed estimated ejection fraction is 65 %, normal diastology for age, left atrium is mildly enlarged, trivial mitral valve insufficiency, mild (1+) tricuspid valve insufficiency, right ventricular systolic pressure estimated to be 42 mmHg, mild pulmonary hypertension, moderate to severe aortic stenosis, possible fusion b/w left and non-coronary cusps, peak aortic valve gradient 46 mmHg, mean aortic valve gradient 24 mmHg, calculated aortic valve area (continuity equation) is 1.0 cm2, and there is no comparison study available. Assessment AND Plan 1. Shortness of breath R06.02 Az Guzman MD The patient was noted to have no significant shortness of breath. I did let her know that should she have any worsening of the above are associated with angina or dizziness she should let us know. Plan - GLENIS Villagomez Patient's EKG in office showed sinus bradycardia at a rate of 55 bpm without any acute ST changes. This was patient's main concern, which precipitated today's office visit. She is unsure if this truly has worsened, but states that her son was very concerned. Her activity level has remained stable. We will continue to monitor this. We will not make any medication regimen changed. Orders Orders: 2. Nonrheumatic aortic valve stenosis I35.0 Az Guzman MD The patient had echocardiogram performed because her primary physician had detected a heart murmur. The echocardiographic findings are as noted above. Her physical exam demonstrated a 3/6 harsh systolic ejection murmur noted left sternal border radiating to both carotids. At this time it is felt that her aortic stenosis is moderate and asymptomatic. GLENIS Arzate Patient's echocardiogram from March 2018 showed an estimated ejection fraction of 65%, moderate to severe aortic valve stenosis, peak aortic valve gradient of 46 mmHg, mean aortic valve gradient of 24 mmHg, and a calculated aortic valve area of 1.0 cm . Patient's symptoms appear stable. We will continue to monitor this through history, exam, and repeat echocardiogram. She was instructed to contact our office if she notices any worsening symptoms of chest pain, shortness of breath, or syncope. 3. Essential hypertension I10 Plan - Amari Guzman MD She does have a history of hypertension which is well-controlled on the amiloride hydrochlorothiazide as well as the propranolol. Electrolytes should be monitored carefully to make sure she is not hypokalemic. Plan Detail Other Medications New: Discontinued: Additional Comments - Andres Tabor RECYCLING TECH-C Discussed the above patient with Dr. Guzman, he agrees with the plan of care. Thank you for allowing us to participate in the patients plan of care, if you have any questions please do not hesitate to call. This note was generated using a voice recognition system and there may be incorrect words, spelling or punctuation that were not noted when reviewing the office note prior to saving. 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) Coding Level of Care Code Off vis,new,level 4 Diagnoses Shortness of breath R06.02 Nonrheumatic aortic valve stenosis I35.0 Cardiac valve disease etiology: nonrheumatic Essential hypertension I10 Hypertension type: essential hypertension Coding Level of Care Code Off vis,new,level 4 Diagnoses Shortness of breath R06.02 Nonrheumatic aortic valve stenosis I35.0 Cardiac valve disease etiology: nonrheumatic Essential hypertension I10 Hypertension type: essential hypertension 03/17/18 1734 <Electronically signed by Andres Tabor RECYCLING TECH-C> Date Andres Tabor RECYCLING TECH-C 03/18/18 0853<Electronically signed by Amari Guzman MD> Cosigner Signature: Date (if applicable) Amari Guzman MD CC: Jorge L Sage 12 LEAD EKG PERFORMED Observed: 03/17/2018 Status: F Source: [place] BY [facility] 4:05 PM [facility] REPOSITORY [facility] [address] [place] [address] 12 Lead EKG performed by [facility] 03/17/18 1604 MR#: [id number] Acct: [id number] Name: PEPPER ELLIOTT Rep #: [id number] : 1945 72 From: Andres Tabor RECYCLING TECH-C Attending Dr: Andres Tabor NP Status: REG AMB Ordering Dr: Andres Tabor RECYCLING TECH-C Date: 03/17/18 [place] [facility] Sex: F C Admitted: BMS/12 Lead EKG performed by [facility] ECG Report Interpretation Sinus Bradycardia Low voltage QRSSeptal NE, age undeterminedABNORMAL Electronically signed on 03/17/2018 at 16:30 by Edu Abdalla 03/17/18 1633 Date Andres Tabor RECYCLING TECH-C CC: Jorge L Sage Date Dictated: 03/17/18 1604 Date Transcribed: 03/17/18 160 Steam Powerplant Supervisor: LETY Signed ECHOCARDIOGRAM COMPLETE Observed: 03/04/2018 Status: F Source: [place] 5:16 PM [facility]POS[facility] Cardiovascular Services [address] [place] [address] Echo Complete 03/04/18 0959 MR#: [id number] Acct: [id number] Name: PEPPER ELLIOTT Rep #: [id number] : 1945 72 From: Alexis Martinez MD Attending Dr: Jorge L Sage Status: REG CLI Ordering Dr: Jorge L Sage MD Date: 03/04/18 Location: [facility] Sex: F C Admitted: Reason For Study: MURMUR Procedure This was a 2D Doppler, Color Flow transthoracic echocardiogram. Exam performed in department. Left Ventricle Normal size and thickness. The estimated ejection fraction is 65 %. Normal diastology for age. No regional wall motion abnormalities noted. Right Ventricle Normal size and thickness. Normal systolic function. Atria The left atrium is mildly enlarged. Normal right atrium. Normal atrial septum. Mitral Valve Mild diffuse mitral valve thickening. Mild mitral annular calcification extending into the posterior leaflet. Trivial mitral valve insufficiency. Tricuspid Valve Normal tricuspid valve. Mild (1+) tricuspid valve insufficiency. Right ventricular systolic pressure estimated to be 42 mmHg. Mild pulmonary hypertension. Aortic Valve Trisinus/trileaflet aortic valve. Moderate focal aortic valve thickening. Moderate focal aortic valve calcification. Moderate restriction of the aortic valve. Possible fusion b/w left and non- coronary cusps. Moderate aortic stenosis. Peak aortic valve gradient 46 mmHg. Mean aortic valve gradient 24 mmHg. Calculated aortic valve area (continuity equation) is 1.0 cm2. Pulmonic Valve Normal pulmonic valve. Mild (1+) pulmonic valve insufficiency. Great Vessels Normal aortic root. Normal arch. Normal inferior vena cava. Inferior vena cava collapse with sniff. Pericardium/Pleural No pericardial effusion. MMode/2D Measurements AND Calculations LVIDd: 4.5 cm IVSd: 0.91 cm LVOT diam: 2.1 cm LVIDs: 2.7 cm LVPWd: 0.91 cm LVOT area: 3.4 cm2 RVDd: 3.4 cm FS: 39.7 % Ao root diam: 3.5 cm LAV(MOD-bp): 69.0 ml LA A4 area: 21.1 cm2 LA dimension: 3.9 cm LAV(MOD-bp) Indexed: 40.2 ml/m2 LAV(MOD-sp2): 66.5 ml LAV(MOD-sp4): 65.1 ml RA A4 area: 18.3 cm2 Doppler Measurements AND Calculations MV E max rajesh: 100.2 cm/sec Lat Peak E' Rajesh: 9.1 cm/sec Med Peak E' Rajesh: 6.0 cm/sec MV A max rajesh: 66.5 cm/sec E/E' lat: 11.0 E/E' med: 16.6 MV E/A: 1.5 Ao V2 max: 338.4 cm/sec LV V1 max: 94.9 cm/sec SV(LVOT): 91.8 ml Ao max P.8 mmHg LV V1 max P.6 mmHg Ao V2 mean: 235.8 cm/sec LV V1 mean P.1 mmHg Ao mean P.4 mmHg LV V1 mean: 70.2 cm/sec Ao V2 VTI: 88.8 cm LV V1 VTI: 26.7 cm STEPHON(I,D): 1.0 cm2 STEPHON(V,D): 0.96 cm2 PA V2 max: 83.3 cm/sec PI end-d rajesh: 95.9 cm/sec TR max rajesh: 290.4 cm/sec TR max P.8 mmHg Interpretation Summary The estimated ejection fraction is 65 %. Normal diastology for age. The left atrium is mildly enlarged. Trivial mitral valve insufficiency. Mild (1+) tricuspid valve insufficiency. Right ventricular systolic pressure estimated to be 42 mmHg. Mild pulmonary hypertension. Moderate to severe aortic stenosis. Possible fusion b/w left and non-coronary cusps. Peak aortic valve gradient 46 mmHg. Mean aortic valve gradient 24 mmHg. Calculated aortic valve area (continuity equation) is 1.0 cm2. There is no comparison study available. Ordering Physician: Jorge L Sage Referring Physician: Ruben Lackey Performed By: Ginny Alexandra, BIB, RVT 03/04/181715 Date Alexis Martinez MD CC: Jorge L Sage Date Dictated: 03/04/1859 Date Transcribed: 03/04/181715 [employer] Power[employer] Supervisor: Signed CBC W/DIFF, AUTOMATED Collected: 02/10/2018 Status: F Source: [place] 10:40 AM [facility] REPOSITORY TYPE CODE TESTS RESULT OUT OF RANGE REFERENCE UNITS LAB L100.1000 4.4-11.0 K/mm3 Low WBC 4.1 LAB L100.1200 4.2-5.4 M/mm3 Normal RBC 4.49 LAB L100.1300 12.0-15.0 g/dl High HGB 15.7 LAB L100.1400 37-47 % Normal HCT 44.1 LAB L100.1500 81-99 fL Normal MCV 98.2 LAB L100.1600 27.0-32.0 pg High MCH 35.0 LAB L100.1700 32-36 g/gl Normal MCHC 35.6 LAB L100.1810 11.6-14.6 % Normal RDW CV 13.6 LAB L100.1820 35.1-43.9 fl High RDW SD 47.8 LAB L100.1900 150-450 K/mm3 Low PLT 60 LAB L100.2000 6.2-12.0 fl Normal MPV 10.5 LAB L100.2100 47-70 % Normal NEUT% 62.2 LAB L100.2200 19-41 % Normal LY% 21.8 LAB L100.2300 0-10 % Normal MONO% 9.0 LAB L100.2400 0-5 % High EO% 6.1 LAB L100.2500 0-1 % Normal BASO% 0.7 LAB L100.2550 0.0-0.9 % Normal IM GRAN % 0.200 Result Comment: IG% - Immature Granulocytes (promyelocytes, myelocytes and metamyelocytes) > 1% indicates that a LEFT SHIFT is Present. LAB L100.2620 2.0-7.7 X10 3/uL Normal Absolute Neut 2.5 LAB L100.2720 0.83-4.51 X10 3/ul Normal Absolute Lymph 0.89 Performed By: #### L100.0100 #### [facility] [address] [place], [address] COMPREHENSIVE METABOLIC Collected: 02/10/2018 Status: F Source: [facility] 10:40 AM [facility] REPOSITORY TYPE CODE TESTS RESULT OUT OF RANGE REFERENCE UNITS LAB L501.0100 74-106 mg/dL High GLU 200 Result Comment: Glucose result greater than or equal to 200 mg/dL suggests DIABETES MELLITUS per A.D.A. criteria. Please note revised GLUCOSE reference range effective 2017. LAB L501.1000 7-18 mg/dL Normal BUN 10 LAB L501.1100 0.55-1.02 mg/dL Normal CREAT,SERUM 0.73 Result Comment: The validity of the calculated GFR AND GFRAA in patients over 70 years has not been determined. Clinical correlation is essential. LAB L501.1110 >60 mL/min Normal EST GFR 82 Result Comment: Non- GFR Calc LAB L501.1115 >60 mL/min Normal EST GFR - AA 99 Result Comment: GFR Calc LAB L501.1300 10-20 RATIO Normal BUN/CRE 13.6 LAB L501.1500 6.4-8.2 g/dL T Normal PROT 6.8 LAB L501.1800 3.2-5.0 g/dL Low ALB 3.0 LAB L501.1950 2.2-4.2 g/dL Normal GLOB 3.8 LAB L501.2000 0.9-2.4 RATIO Low A/G 0.8 LAB L501.2200 8.5-10.1 mg/dL CA Normal 8.5 LAB L501.4100 15-37 U/L Normal AST 37 LAB L501.4305 45-117 U/L Normal ALK P 106 LAB L501.4405 13-56 U/L Normal ALT 22 Result Comment: Please note revised ALT reference range effective 2017. LAB L501.4600 0.20-1.00 mg/dL High T BILI 4.80 LAB L501.5300 136-145 mmol/L Normal NA 140 LAB L501.5600 3.5-5.1 mmol/L Normal K 3.6 LAB L501.5900 98-107 mmol/L Normal CL 106 LAB L501.6100 21.0-32.0 mmol/L Normal CO2 27.0 LAB L501.6200 5-15 Normal GAP 7 Performed By: #### L500.4050, L501.9520, L506.0400 #### [facility] [address] [place], [address] THYROID STIM HORMONE Collected: 02/10/2018 Status: F Source: [place] (T[facility]) 10:40 AM [facility] REPOSIT[facility] TYPE CODE TESTS RESULT OUT OF RANGE REFERENCE UNITS LAB L501.9520 0.358-3.74 uIU/mL High TSH 5.91 Performed By: #### L500.4050, L501.9520, L506.0400 #### [facility] [address] [place], [place], [address] T4 FREE DIRECT Collected: 02/10/2018 Status: F Source: [place] 10:40 AM [facility] REPOSIT[facility] TYPE CODE TESTS RESULT OUT OF RANGE REFERENCE UNITS LAB L506.0400 0.76-1.46 ng/dL Normal T4 FREE 1.05 DIRECT Performed By: #### L500.4050, L501.9520, L506.0400 #### [facility] [address] [place], [address] PROTHROMBIN TIME W/INR Collected: 11/25/2017 Status: F Source: [place] 11:27 AM [facility] REPOSIT[facility] TYPE CODE TESTS RESULT OUT OF RANGE REFERENCE UNITS LAB L300.4150 11.7-14.9 SECONDS High PROTIME 16.0 LAB L300.4200 Normal INR 1.3 Performed By: #### L300.3900 #### [facility] [address] [place], [address] LIVER PROFILE Collected: 11/25/2017 Status: F Source: [place] 11:27 AM [facility] REPOS[facility] TYPE CODE TESTS RESULT OUT OF RANGE REFERENCE UNITS LAB L501.1500 6.4-8.2 g/dL Normal T PROT 7.7 LAB L501.1800 3.4-5.0 g/dL Normal ALB 3.4 Result Comment: Please note revised Albumin AND Globulin reference range effective 2017. LAB L501.1950 2.2-4.2 g/dL High GLOB 4.3 LAB L501.4100 15-37 U/L High AST 45 LAB L501.4305 45-117 U/L High ALK P 139 LAB L501.4405 12-78 U/L Normal ALT 31 LAB L501.4600 0.20-1.00 mg/dL High T BILI 3.20 LAB L501.4700 0.00-0.30 mg/dL High D BILI 0.75 Performed By: #### L500.3400 #### [facility] [address] [place], [address] AMMONIA Collected: 11/25/2017 Status: F Source: [place] 11:27 AM [facility] REPOS[facility] TYPE CODE TESTS RESULT OUT OF REFERENCE UNITS RANGE LAB L503.5510 11-32 umol/L High AMMONIA 47.0 Performed By: #### L503.5510 #### [facility] [address] [place], [address] ALLERGIES ALLERGIES DATE TYPE / CODE NAME / CODE REACTION SEVERITY SOURCE 11/24/2018 Drug nadolol/F0060 Swelling Unknown [facility] Allergy/4160 46303(RXNORM) Hospital 37306(SNOMED Repository CT) 11/24/2018 Drug latex/[id number] Unknown Unknown [facility] Allergy/4160 921(RXNORM) [facility] 22041(SNOMED Repository CT) 03/17/2018 Drug No Known Unknown [facility] Allergy/4160 Allergies/F00 [facility] 05171(SNOMED 8484663(RXNOR Repository CT) M) ENCOUNTERS ENCOUNTERS ADMIT/DISCHARGE ACCOUNT ADMITTING ENCOUNTER LOCATION SOURCE NUMBER CLASS 11/24/2018 [id number] Ambulatory BMSBuilding:B [place] [facility] Hospital Repository 11/03/2018 [id number] Amb[facility] [place] [facility]RAD.[facility] Repository E 10/14/2018 [id number] Ambulatory BMSBuilding:W [place] 7 [facility] Hospital Repository 10/14/2018 [id number] Amb[facility] [place] [facility] ing:PSN Repository 09/10/2018/ [id number] Ambulatory BMSBuilding:B [place] 8 6 [facility] Hospital Repository 09/09/2018 [id number] Ambulatory BMSBuilding:B [place] 2 [facility] Repository 05/28/2018 [id number] [facility] [place] [facility] Repository 05/24/2018 [id number] Amb[facility] [place] [facility] ing:BFHLAB Repository 05/17/2018 [id number] Amb[facility] [place] [facility] Repository 05/15/2018/ [id number] Emergency [place] [facility] Repository 04/07/2018 [id number] Ambulatory BMSBuilding:B [place] 9 [facility] Hospital Repository 03/25/2018 [id number] Ambulatory [place] [facility] ing:LAB.FUTUR Repository E 03/17/2018/ [id number] Ambulatory BMSBuilding:B [place] 8 5 [facility] Hospital Repository 03/04/2018 [id number] Ambulatory [place] [facility] Repository 03/04/2018 [id number] Ambulatory BMSBuilding:W [place] 5 [facility] Hospital Repository 02/10/2018 [id number] Ambulatory [place] [facility] ing:LAB.FUTUR Repository E 11/25/2017 [id number] Ambulatory [place] [facility] ing[facility]LAB Repository PAYERS PAYERS ENCOUNTER GUARANTOR PAYER SUBSCRIBER SOURCE 11/24/2018 PEPPER L Primary PEPPER L [place] [id number] Insurance:MEDICARE CARPENTERDOB: [facility] A [facility] [id number]: Repository [address]Wzx: 330 [id number] () Date:2018-10-15 11/24/2018 Secondary [place]PPER L [place] Insurance:[place] CARPENTERDOB: [facility] [id number] Hospital COPolicy Number: Repository [id number] Date:2018-10-15[address] [address], [place] [address]TS: 11/24/2018 Tertiary NOT GIVENUNK [place] Insurance:SELF PAY [facility] Number: Effective Repository Date:2018-11-17 11/03/2018 PEPPER L Primary PEPPER L [place] [id number] Insurance:MEDICARE CARPENTERDOB: [facility] [id number] Number: Repository [address]Nuo: 330 [id number] () Date:2018-09-14 11/03/2018 Secondary PEPPER L Nara Visa Insurance:[place] CARPENTERDOB: [facility] [id number] Hospital COPolicy Number: Repository [id number] Date:2018-09-14 [address] [address], [place] [address]XC: 11/03/2018 Tertiary NOT GIVENUNK Nara Visa Insurance:SELF PAY [facility] Number: Effective Repository Date:2018-09-14 10/14/2018 PEPPER L Primary PEPPER L Nara Visa [id number] Insurance:MEDICARE CARPENTERDOB: [facility] PART A [facility] [id number] Number: Repository [address]Ebz: 330 [id number] [phone] () Date:2018-09-15 10/14/2018 Secondary PEPPER L Shayy Insurance:[place] CARPENTERDOB: [facility] [id number] Hospital COPolicy Number: Repository [id number] Date:2018-09-15P [address] [address]AN[place] [address]UN: 10/14/2018 Tertiary NOT GIVENUNK Nara Visa Insurance:SELF PAY [facility] Number: Effective Repository Date:2018-10-14 10/14/2018 PEPPER L Primary PEPPER L Nara Visa [id number] Insurance:MEDICARE CARPENTERDOB: [facility] PART A [facility] [id number] Number: Repository [address]Gaq: 330 [id number] [phone] () Date:2018-09-15 10/14/2018 Secondary PEPPER L Shayy Insurance:[place] CARPENTERDOB: [facility] [id number] [facility] COPolicy Number: Repository [id number] Date:2018-09-15 [address] [address]Q [place] [address]ZG: 10/14/2018 Tertiary NOT GIVENUNK Shayy Insurance:SELF PAY [facility] Number: Effective Repository Date:2018-09-15 09/10/2018 PEPPER L Primary PEPPER L Shayy [id number] Insurance:MEDICARE CARPENTERDOB: [facility] [id number] Number: Repository [address]Llm: 330 [id number] [phone] () Date:2018-03-17 09/10/2018 Secondary PEPPER L Shayy Insurance:[place] CARPENTERDOB: [facility] [id number] Hospital COPolicy Number: Repository [id number] Date:2018-03-17 [address] [address], [place] [address]CO: 09/10/2018 Tertiary NOT GIVENUNK Shayy Insurance:SELF PAY [facility] Number: Effective Repository Date:2018-09-10 09/09/2018 PEPPER L Primary PEPPER L Shayy [id number] Insurance:MEDICARE CARPENTERDOB: [facility] PART A [facility] [id number] Number: Repository [address]Tkw: 330 [id number] [phone] () Date:2018-09-09 09/09/2018 Secondary PEPPER L Shayy Insurance:[place] CARPENTERDOB: [facility] [id number] Hospital COPolicy Number: Repository [id number] Date:2018-09-09[address] [address]XF[place], [place] [address]OK: 09/09/2018 Tertiary NOT GIVENUNK Nara Visa Insurance:SELF PAY [facility] Number: Effective Repository Date:2018-09-09 05/28/2018 PEPPER L Primary PEPPER L Shayy [id number] Insurance:MEDICARE CARPENTERDOB: [facility] PART A [facility] [id number] Number: Repository [address]Zgg: 330 [id number] [phone] () Date:2018-05-25 05/28/2018 Secondary PEPPER L Nara Visa Insurance:[place] [facility]: [facility] [id number] Hospital COPolicy Number: Repository [id number] Date:2018-05-25P [address] [address], [place] [address]FI: 05/28/2018 Tertiary NOT GIVENUNK Shayy Insurance:SELF PAY [facility] Number: Effective Repository Date:2018-05-25 05/24/2018 PEPPER L Primary PEPPER L Shayy [id number] Insurance:MEDICARE CARPENTERDOB: [facility] PART A [facility] [id number] Number: Repository [id number]: 330 [id number] [phone] () Date:2018-05-24 05/24/2018 Secondary PEPPER L Shayy Insurance:[place] [facility]: [facility] [id number] Hospital COPolicy Number: Repository [id number] Date:2018-05-24P [address] [address]NKD, [place] [address]RA: 05/24/2018 Tertiary NOT GIVENUNK Nara Visa Insurance:SELF PAY [facility] Number: Effective Repository Date:2018-05-24 05/17/2018 PEPPER L Primary PEPPER L Nara Visa [id number] Insurance:MEDICARE CARPENTERDOB: [facility] [id number] Number: Repository [address]Viy: 330 [id number] [phone] (HP) Date:2018-05-17 05/17/2018 Secondary PEPPER L Shayy Insurance:[place] CARPENTERDOB: [facility] [id number] Hospital COPolicy Number: Repository [id number] Date:2018-05-17P [address] [address], [place] [address]FB: 05/17/2018 Tertiary NOT GIVENUNK Nara Visa Insurance:SELF PAY [facility] Number: Effective Repository Date:2018-05-17 05/15/2018 PEPPER L Primary PEPPER L Nara Visa [id number] Insurance:MEDICARE CARPENTERDOB: [facility] [id number] Number: Repository [id number]: 330 [id number] [phone] () Date:2018-05-15 05/15/2018 Secondary PEPPER L Shayy Insurance:[place] [facility]: [facility] [id number] Hospital COPolicy Number: Repository [id number] Date:2018-05-15P [address] [address]TZ, [place] [address]IN: 05/15/2018 Tertiary NOT GIVENUNK Nara Visa Insurance:SELF PAY [facility] Number: Effective Repository Date:2018-05-15 04/07/2018 PEPPER L Primary PEPPER L Shayy [id number] Insurance:MEDICARE CARPENTERDOB: [facility] [id number] Number: Repository [address]Mdm: 330 [id number] [phone] () Date:2018-03-10 04/07/2018 Secondary PEPPER L Nara Visa Insurance:[place] CARPENTERDOB: [facility] [id number] Hospital COPolicy Number: Repository [id number] Date:2018-03-10 [address] [address], [place] [address]HH: 04/07/2018 Tertiary NOT GIVENUNK Nara Visa Insurance:SELF PAY [facility] Number: Effective Repository Date:2018-03-10 03/25/2018 Pepper L Primary Pepper L Nara Visa [id number] Insurance:MEDICARE CarpenterDOB: [facility] PART A [facility] [id number] [place] Number[facility] Repository [address]Tqt: 330 [id number] [phone] (HP) Date:2018-02-15 03/25/2018 Secondary Pepper L Nara Visa Insurance:[place] NewportDOB: [facility] [id number] Hospital COPolicy Number: Repository [id number] Date:2018-02-15 [address] [address]Q, [place] [address]QB: 03/25/2018 Tertiary NOT GIVENUNK Nara Visa Insurance:SELF PAY [facility] Number: Effective Repository Date:2018-02-15 03/17/2018 PEPPER L Primary PEPPER L Nara Visa [id number] Insurance:MEDICARE CARPENTERDOB: [facility] [id number] Number: Repository [address]Lfi: 330 [id number] [phone] () Date:2018-03-16 03/17/2018 Secondary PEPPER L Shayy Insurance:[place] ADAMSVILLEDOB: [facility] [id number] Hospital COPolicy Number: Repository [id number] Date:2018-03-16 [address] [address], [place] [address]BK: 03/17/2018 Tertiary NOT GIVENUNK Shayy Insurance:SELF PAY [facility] Number: Effective Repository Date:2018-03-17 03/04/2018 PEPPER L Primary PEPPER L Nara Visa [id number] Insurance:MEDICARE [facility]: [facility] [id number] [place] Number[facility] Repository [address]Qbs: 330 [id number] [phone] () Date:2018-02-11 03/04/2018 Secondary PEPPER L Nara Visa Insurance:[place] CARPENTERDOB: [facility] [id number] Hospital COPolicy Number: Repository [id number] Date:2018-02-[address] [address]HDN, [place] [address]MM: 03/04/2018 Tertiary NOT GIVENUNK Shayy Insurance:SELF PAY [facility] Number: Effective Repository Date:2018-02-11 03/04/2018 PEPPER L Primary PEPPER L Nara Visa [id number] Insurance:MEDICARE [facility]: [facility] [id number] [place] Number: Repository [address]Evq: 330 [id number] [phone] () Date:2018-02-11 03/04/2018 Secondary PEPPER L Nara Visa Insurance:[place] CARPENTERDOB: [facility] [id number] Hospital COPolicy Number: Repository [id number] Date:2018-02-[address] [address]BLC, [place] [address]EU: 03/04/2018 Tertiary NOT GIVENUNK Shayy Insurance:SELF PAY [facility] Number: Effective Repository Date:2018-03-04 02/10/2018 Pepper L Primary Pepper L Nara Visa [id number] Insurance:MEDICARE CarpenterDOB: [facility] [id number] Number[facility] Repository [address]Oky: 330 [id number] [phone] () Date:2017-11-10 02/10/2018 Secondary Pepper L Nara Visa Insurance:[place] CarpenterDOB: [facility] [id number] Hospital COPolicy Number: Repository [id number] Date:2017-11-[address] [address], [place] [address]UA: 02/10/2018 Tertiary NOT GIVENUNK Nara Visa Insurance:SELF PAY [facility] Number: Effective Repository Date:2017-11-10 11/25/2017 Pepper L Primary Pepper L Shayy [id number] Insurance:MEDICARE [facility] [id number] [facility] MoustaphaTazcem ayala Number: Repository [id number]: ([phone]) [id number] [phone] () Date:2017-11-25 11/25/2017 Secondary Pepper L Shayy Insurance:[place] CarpenterDOB: [facility] [id number] Hospital COPolicy Number: Repository [id number] Date:2017-11-25P [address] [address]DF[place], [place] [address]VK: 11/25/2017 Tertiary NOT GIVENUNK Nara Visa Insurance:SELF PAY [facility] Number: Effective Repository Date:2017-11-25
== END ==
PROVIDERS: Family Provider Family Medicine; PCP Family Medicine; Referring Provider Family Medicine; Visit Provider Family Medicine
DX: R06.00 Dyspnea, unspecified (principal)
CPT/HCPCS: 94060; 94726; 94729

== ENCOUNTER → 2018-11-03 14:59 | Outpatient (CLI) | payer MEDICARE, OTHER, SELFPAY ==
--- NOTE | 2018-11-03 15:03 | RAD_ITS ---
STUDY: X-RAY CHEST REASON FOR EXAM: Female, 73 years old. Shortness of breath, chest pain on deep inspiration. TECHNIQUE: PA and lateral chest COMPARISON: None. FINDINGS: The lungs are clear. Mild hyperlucency may be a factor of technique and good inspiratory effort. Correlate smoking history for possible mild COPD. Normal cardiomediastinal silhouette, mikal and pleural margins. No acute osseous or upper abdominal process. Mild thoracic kyphosis. RAD/Chest PA and Lateral IMPRESSION: No acute cardiopulmonary process. Electronically Signed: Celio Alexander MD at 15:34 EST Tel , Service support ,
== END ==
PROVIDERS: Family Provider Family Medicine; PCP Family Medicine; Referring Provider Family Medicine; Visit Provider Family Medicine
DX: R06.00 Dyspnea, unspecified (principal)
CPT/HCPCS: 71046

== ENCOUNTER → 2018-12-07 14:10 | Outpatient (CLI) | payer MEDICARE, OTHER, SELFPAY ==
[2018-12-07 16:58] LABS: Erythrocyte Sedimentation Rate 17 mm/hr (0-30)
[2018-12-07 17:01] LABS: Absolute Lymphocyte Count 1.19 X10^3/ul (0.83-4.51); Absolute Neutrophil Count 2.7 X10^3/uL (2.0-7.7); Basophil# 0.06 X10^3/uL; Basophil% 1.3 % (0-1); Eosinophil# 0.32 X10^3/uL; Eosinophils% 6.8 % (0-5); Hematocrit 42.3 % (37-47); Hemoglobin 14.9 g/dl (12.0-15.0); Lymphocyte # 1.19 X10^3/ul (4.0); Lymphocyte % 25.4 % (19-41); Mean Corp Hgb Conc 35.2 g/gl (32-36); Mean Corpuscular Hgb 34.3 pg (27.0-32.0); Mean Corpuscular Volume 97.5 fL (81-99); Mean Platelet Vol. 10.5 fl (6.2-12.0); Monocyte# 0.45 X10^3/uL; Monocyte% 9.6 % (0-10); Neutrophil # 2.66 X10^3/uL (2.7-7.7); Neutrophil % 56.9 % (47-70); Platelet Count 102 K/mm3 (150-450); RBC Distribution Width CV 13.9 % (11.6-14.6); RBC Distribution Width SD 47.5 fl (35.1-43.9); Red Blood Count 4.34 M/mm3 (4.2-5.4); White Blood Count 4.7 K/mm3 (4.4-11.0)
[2018-12-07 17:02] LABS: POSITIVE COUNT NO; POSITIVE DIFFERENTIAL NO; POSITIVE MORPHOLOGY NO
[2018-12-07 18:07] LABS: ALB/GLOB Ratio 0.7 RATIO (0.9-2.4); AST(SGOT) 38 U/L (15-37); Alanine Aminotransfer ALT/SGPT 24 U/L (13-56); Alkaline Phosphatase 89 U/L (45-117); Anion Gap 8 (5-15); BUN 11 mg/dL (7-18); BUN/Creat Ratio 12.4 RATIO (10-20); Calcium,Total 8.4 mg/dL (8.5-10.1); Chloride 108 mmol/L (98-107); Creatinine, Serum 0.88 mg/dL (0.55-1.02); EST Glomerular Filtration Rate 66 mL/min (>60); Est Glom Filt Rate - Afr Amer 80 mL/min (>60); Globulin 4.1 g/dL (2.2-4.2); Glucose 194 mg/dL (74-106); Magnesium 1.6 mg/dL (1.6-2.6); Potassium 3.4 mmol/L (3.5-5.1); Protein, Total 7.1 g/dL (6.4-8.2); Sodium Level 141 mmol/L (136-145); T4 Free Direct 1.51 ng/dL (0.76-1.46); Thyroid Stim Hormone (TSH) 1.65 uIU/mL (0.358-3.74)
== END ==
PROVIDERS: Family Provider Family Medicine; PCP Family Medicine; Visit Provider Family Medicine
DX: E11.9 Type 2 diabetes mellitus without complications (principal); E03.9 Hypothyroidism, unspecified; K74.60 Unspecified cirrhosis of liver; D69.6 Thrombocytopenia, unspecified
CPT/HCPCS: 36415; 80053; 83735; 84439; 84443; 85025; 85652

== ENCOUNTER 2018-12-09 11:00 | Outpatient (RCR) | payer MEDICARE, OTHER, SELFPAY ==
--- NOTE | 2019-02-01 16:18 | HP.PTDCNRP_ITS ---
HP - Discharge Summary (1) - Patient Information JOSE G ELLIOTT was seen in my office for initial evaluation on 12/09/18. The following Plan of Care was established for this patient: Initial Frequency: 2x /Week Initial Duration: 4-6 Weeks - Anticipated Interventions Patient/Client Instruction: Educate patient on: Condition, Plan of Care For the Purpose of:: To improve muscle performance and motor function, To i ncrease tolerance to activity/condition/position Therapeutic Exercise to Include: Strength training, Balance training, Active ROM For the Purpose of:: To improve muscle performance and motor function, To improve ability of physical actions for home/community/work/leisure, To improve gait and locomotor functions, To improve balance Manual Therapy Techniques to Include: Soft tissue mobilization For the Purpose of:: To improve nutrient delivery to tissue Thermo therapy (hot pack): Yes For the Purpose of:: To increase ROM This patient was last seen in our office 12/09/18. Pertinent comments regarding their Physical therapy will appear below: Pt seen for evaluationa dn POC was established. Pt cancelled all visits stating she would call when she wished to return. At this point it has been nesarly two months and I will disocntinue due to nonattendance. At this point I will be discontinuing this patient from physical therapy. I would be happy to see this patient again in the future if found appropriate by the physician. Thank you! Isaiah Hill, DPT, OCS, CSCS
== END 2018-12-09 19:00 | disposition home or self-care (01) ==
LOC: PT 11:00
PROVIDERS: Family Provider Family Medicine; PCP Family Medicine; Referring Provider Family Medicine; Visit Provider Family Medicine
DX: H81.10 Benign paroxysmal vertigo, unspecified ear (principal)
CPT/HCPCS: 97162

== ENCOUNTER → 2019-01-07 12:03 | Outpatient (CLI) | payer MEDICARE, OTHER, SELFPAY ==
[2019-01-07 11:05] VITALS: BMI 30.6
[2019-01-07 13:36] LABS: Anion Gap 4 (5-15); BUN 14 mg/dL (7-18); BUN/Creat Ratio 17.7 RATIO (10-20); Chloride 105 mmol/L (98-107); Creatinine, Serum 0.79 mg/dL (0.55-1.02); EST Glomerular Filtration Rate 75 mL/min (>60); Est Glom Filt Rate - Afr Amer 91 mL/min (>60); Glucose 152 mg/dL (74-106); Potassium 4.1 mmol/L (3.5-5.1); Sodium Level 138 mmol/L (136-145)
[2019-01-07 13:40] LABS: BNP,B-Type NATRIURETIC PEPTIDE 111.8 pg/mL (0-100)
== END ==
PROVIDERS: Family Provider Family Medicine; PCP Family Medicine; Referring Provider Nurse Practitioner Family; Visit Provider Nurse Practitioner Family
DX: R06.09 Other forms of dyspnea (principal); I35.0 Nonrheumatic aortic (valve) stenosis; I10 Essential (primary) hypertension
CPT/HCPCS: 36415; 80048; 83880

== ENCOUNTER → 2019-12-16 11:50 | Outpatient (CLI) | payer MEDICARE, SELFPAY ==
[2019-11-15 12:57] VITALS: BMI 28.7
[2019-12-16 15:40] LABS: Absolute Lymphocyte Count 0.82 X10^3/uL (0.83-4.51); Basophil# 0.04 X10^3/uL; Basophil% 1.1 % (0-1); Eosinophil# 0.28 X10^3/uL; Hematocrit 40.6 % (37-47); Hemoglobin 13.7 g/dL (12.0-15.0); Lymphocyte # 0.82 X10^3/ul (4.0); Lymphocyte % 23.3 % (19-41); Mean Corp Hgb Conc 33.7 g/dL (32-36); Mean Corpuscular Hgb 33.8 pg (27.0-32.0); Mean Corpuscular Volume 100.2 fL (81-99); Mean Platelet Vol. 10.5 fl (6.2-12.0); Monocyte# 0.33 X10^3/uL; Monocyte% 9.4 % (0-10); NRBC Flagged by Analyzer 0 % (0-5); Neutrophil # 2.04 X10^3/uL (2.7-7.7); Neutrophil % 57.9 % (47-70); POSITIVE COUNT YES; Platelet Count 90 K/mm3 (150-450); RBC Distribution Width CV 14.2 % (11.6-14.6); RBC Distribution Width SD 51.5 fl (35.1-43.9); Red Blood Count 4.05 M/mm3 (4.2-5.4); White Blood Count 3.5 K/mm3 (4.4-11.0)
[2019-12-16 16:04] LABS: ALB/GLOB Ratio 0.8 RATIO (0.9-2.4); AST(SGOT) 38 U/L (15-37); Alanine Aminotransfer ALT/SGPT 21 U/L (13-56); Albumin, Serum 3.2 g/dL (3.2-5.0); Alkaline Phosphatase 121 U/L (45-117); Anion Gap 5 (5-15); BUN 15 mg/dL (7-18); BUN/Creat Ratio 21.5 RATIO (10-20); Calcium,Total 8.9 mg/dL (8.5-10.1); Chloride 104 mmol/L (98-107); EST Glomerular Filtration Rate 87 mL/min (>60); Est Glom Filt Rate - Afr Amer 105 mL/min (>60); Globulin 4.1 g/dL (2.2-4.2); Glucose 98 mg/dL (74-106); Potassium 3.1 mmol/L (3.5-5.1); Protein, Total 7.3 g/dL (6.4-8.2); Sodium Level 140 mmol/L (136-145); T4 Free Direct 1.65 ng/dL (0.76-1.46)
== END ==
PROVIDERS: PCP Family Medicine; Visit Provider Family Medicine
DX: E11.9 Type 2 diabetes mellitus without complications (principal); K74.60 Unspecified cirrhosis of liver; I10 Essential (primary) hypertension; D69.6 Thrombocytopenia, unspecified
CPT/HCPCS: 36415; 80053; 84439; 84443; 85025

== ENCOUNTER → 2019-12-28 09:01 | Outpatient (CLI) | payer MEDICARE, SELFPAY ==
[2019-11-15 12:57] VITALS: BMI 28.7
--- NOTE | 2019-12-28 09:01 | ECHOCS_ITS ---
Reason For Study: Aortic Stenosis Procedure This was a 2D Doppler, Color Flow transthoracic echocardiogram. The study was technically difficult. Contrast injection was performed. Exam performed in department. Left Ventricle Normal LV size. Left ventricular systolic function is normal. The estimated ejection fraction is 65 %. No regional wall motion abnormalities noted. Right Ventricle Normal RV size. Normal systolic function. Atria Normal left atrium. Normal right atrium. Mitral Valve Normal mitral valve. Tricuspid Valve Normal tricuspid valve. Mild (1+) tricuspid valve insufficiency. Pulmonary artery systolic pressure is 38 mmHg. Aortic Valve Trisinus/trileaflet aortic valve. Moderate focal aortic valve calcification. Peak aortic valve gradient 79 mmHg. Mean aortic valve gradient 46 mmHg. Severe aortic stenosis. Pulmonic Valve The pulmonic valve is not well visualized. Great Vessels Normal aortic root. The pulmonary artery is normal size. Normal inferior vena cava. Pericardium/Pleural No pericardial effusion. Medication 22 gauge I.V. with prn adaptor inserted into right arm. Diluted definity 1ml given slow IV push to enhance endocardial definition. MMode/2D Measurements & Calculations LVIDd: 3.3 cm IVSd: 1.2 cm LVOT diam: 2.1 cm LVIDs: 2.0 cm LVPWd: 1.1 cm RVDd: 3.8 cm FS: 39.2 % LVOT area: 3.5 cm2 Ao root diam: 3.5 cm LAV(MOD-bp): 55.6 ml LA A4 area: 19.6 cm2 LA dimension: 3.0 cm LAV(MOD-bp) Indexed: 33.5 ml/m2 LAV(MOD-sp2): 60.0 ml LAV(MOD-sp4): 53.0 ml RA A4 area: 15.1 cm2 Doppler Measurements & Calculations Ao V2 max: 445.2 cm/sec AI max leidy: 284.6 cm/sec LV V1 max: 84.5 cm/sec Ao max P.3 mmHg AI max P.4 mmHg LV V1 max P.9 mmHg Ao V2 mean: 319.7 cm/sec AI dec slope: 123.3 cm/sec2 LV V1 mean P.5 mmHg Ao mean P.8 mmHg AI P1/2t: 676.3 msec LV V1 mean: 56.4 cm/sec Ao V2 VTI: 105.1 cm LV V1 VTI: 19.8 cm STEPHON(I,D): 0.67 cm2 STEPHON(V,D): 0.67 cm2 SV(LVOT): 70.0 ml PA V2 max: 111.7 cm/sec TR max leidy: 294.7 cm/sec TR max P.7 mmHg Interpretation Summary Normal LV size. Left ventricular systolic function is normal. The estimated ejection fraction is 65 %. Mild (1+) tricuspid valve insufficiency. Mean aortic valve gradient 46 mmHg. Severe aortic stenosis. Compared to the previous the is worse Ordering Physician: Andres Tabor Referring Physician: Jorge L Sage Performed By: John Piña RCS
--- NOTE | 2019-12-28 09:01 | US_ITS ---
STUDY: ABDOMINAL ULTRASOUND - RIGHT UPPER QUADRANT REASON FOR VISIT: Female, 74 years old nausea and vomiting TECHNIQUE: Ultrasound evaluation of the right upper quadrant was performed with real-time and static martinez-scale imaging. TECHNICAL QUALITY: Adequate. COMPARISON: 2017 FINDINGS: Liver: The liver measures 14.15 cm. There is normal echogenicity of the liver. The bile ducts are within normal limits. There is hepatic color flow. The direction of portal flow is hepatopetal. Rn Camp notes 3 separate liver nodules, one in the left lobe measuring 1.4 x 1.7 x 1.1 cm, the other 2 in the right. Larger measures 1.4 x 1.0 x 1.2 cm. These were not seen are mentioned on the previous study, further evaluation with CT may be of benefit. Gallbladder: The patient is status post cholecystectomy. Common Bile Duct (C.B.D.): The common bile duct measures 4.4 mm. Pancreas: Normal size of the head, body and tail of the pancreas. There is normal echogenicity of the pancreas. There is no demonstrated pancreatic mass or cyst. Right Kidney: Normal size of the right kidney. The right kidney measures 10.6 x 5.6 x 4.6 cm. Normal renal cortex. The right cortex measures 1.7 cm. There is no demonstrated renal mass or cyst. There is no right hydronephrosis. US/Liver IMPRESSION: Normal size heterogeneous liver with new bilateral nodules. Recommend further evaluation with CT or MRI Previous cholecystectomy Electronically Signed: Damian Siegel MD at 16:00 EST , Service support ,
== END ==
PROVIDERS: PCP Family Medicine; Referring Provider Nurse Practitioner Family; Visit Provider Nurse Practitioner Family
DX: K75.81 Nonalcoholic steatohepatitis (NASH) (principal); I35.0 Nonrheumatic aortic (valve) stenosis; I10 Essential (primary) hypertension; R06.09 Other forms of dyspnea
CPT/HCPCS: 76705; 93306; Q9957; A4216; C8929

== ENCOUNTER 2020-01-23 08:59 | Outpatient (CLI) | payer MEDICARE, SELFPAY ==
[2020-01-13 12:00] VITALS: BMI 30.2
--- NOTE | 2020-01-13 14:25 | RAD_ITS ---
STUDY: X-RAY CHEST REASON FOR EXAM: Female, 74 years old. CAD TECHNIQUE: PA and lateral views of the chest. COMPARISON: 11/03/2018. FINDINGS: The lungs are clear and expanded. There is no demonstrated pleural abnormality. Normal size heart. Normal mediastinum and mikal. Normal visualized pulmonary arteries. There is atherosclerotic calcification of the aortic arch with tortuosity. Normal visualized thoracic spine. There is degenerative osteoarthritis of the bilateral shoulders. There is no demonstrated abnormality of the visualized soft tissue structures of the upper abdomen. RAD/Chest PA and Lateral IMPRESSION: No acute cardiopulmonary disease. Electronically Signed: Nereida Luna MD at 1:41 EDT , Service support ,
[2020-01-13 15:36] LABS: Absolute Neutrophil Count 2.4 X10^3/uL (2.0-7.7); Basophil# 0.04 X10^3/uL; Eosinophil# 0.24 X10^3/uL; Eosinophils% 6.1 % (0-5); Hematocrit 40.5 % (37-47); Hemoglobin 14.1 g/dL (12.0-15.0); Lymphocyte % 20.5 % (19-41); Mean Corp Hgb Conc 34.8 g/dL (32-36); Mean Corpuscular Hgb 34.7 pg (27.0-32.0); Mean Corpuscular Volume 99.8 fL (81-99); Mean Platelet Vol. 9.5 fl (6.2-12.0); Monocyte# 0.42 X10^3/uL; Monocyte% 10.7 % (0-10); NRBC Flagged by Analyzer 0 % (0-5); Neutrophil # 2.39 X10^3/uL (2.7-7.7); Neutrophil % 61.2 % (47-70); POSITIVE COUNT YES; Platelet Count 92 K/mm3 (150-450); RBC Distribution Width CV 14.2 % (11.6-14.6); RBC Distribution Width SD 51.7 fl (35.1-43.9); Red Blood Count 4.06 M/mm3 (4.2-5.4); White Blood Count 3.9 K/mm3 (4.4-11.0)
[2020-01-13 15:39] LABS: Differential Indicated SCAN CRITERIA MET
[2020-01-13 16:08] LABS: Anion Gap 6 (5-15); BUN 10 mg/dL (7-18); BUN/Creat Ratio 16.4 RATIO (10-20); Calcium,Total 8.5 mg/dL (8.5-10.1); Chloride 107 mmol/L (98-107); Creatinine, Serum 0.61 mg/dL (0.55-1.02); EST Glomerular Filtration Rate 102 mL/min (>60); Est Glom Filt Rate - Afr Amer 123 mL/min (>60); Glucose 95 mg/dL (74-106); Potassium 2.9 mmol/L (3.5-5.1); Sodium Level 140 mmol/L (136-145)
[2020-01-13 16:52] LABS: Platelet Estimate SLT DEC (ADEQ); Red Cell Morphology NORM C+C NORMAL (NORM C&C)
[2020-01-20 12:39] VITALS: BMI 30.2
[2020-01-23 09:34] LABS: Anion Gap 8 (5-15); BUN 12 mg/dL (7-18); BUN/Creat Ratio 17.9 RATIO (10-20); Calcium,Total 8.2 mg/dL (8.5-10.1); Chloride 114 mmol/L (98-107); Creatinine, Serum 0.67 mg/dL (0.55-1.02); EST Glomerular Filtration Rate 91 mL/min (>60); Est Glom Filt Rate - Afr Amer 110 mL/min (>60); Estimated Creatinine Clearance 36.12 ml/min; Glucose 90 mg/dL (74-106); Potassium 3.7 mmol/L (3.5-5.1); Sodium Level 144 mmol/L (136-145)
[2020-01-23 11:36] LABS: Bedside Glucose 75 mg/dL (70-110)
--- NOTE | 2020-01-23 11:48 | CL.D_ITS ---
Patient Name: JOSE G ELLIOTT Study Date: 01/23/2020 Performing: Amari Guzman MD Ht: 61.02 inches 155 cm : 1945 Wt: 160.94 lbs 73 kg Age: 74 Gender: female BSA: 1.72 PROCEDURE(S) PERFORMED [id number] CLINICAL PROFILE AND INDICATIONS Indications: Valvular Disease Heart Failure: None Stress/Imaging Stress/Image Study Performed: No CAD Presentations: No Sxs, no angina. CONCLUSIONS Moderately severe stenosis noted in the mid left anterior descending artery with severe aortic stenos is RECOMMENDATIONS Surgery consult for valvular disease DESCRIPTION OF PROCEDURE The patient arrived to the procedure lab. The risks and benefits of the procedure as well as a full d escription of our services here and current unavailability of surgical backup were fully explained to the patient and/or their significant other prior to the catheterization. The Timeout was completed, verifying the correct patient and procedure. The patient's procedural site was prepped and draped in the usual fashion. Local anesthetic was given subcutaneously to right groin region with Lidocaine 2%. Using a modified Seldinger technique, arterial access was obtained via the right radial artery, a 6F r sheath was inserted. Left Coronary Artery selective angiography was performed in multiple views us ing a 5 Fr. JL3.5 catheter. Right Coronary Artery selective angiography was then performed in multipl e views using a 5 Fr. JR 4 catheter.The arterial sheath was pulled and a TR Band was applied for hemo stasis CORONARY ANGIOGRAPHY DOMINANCE: Right Dominant LEFT HEART ASSESSMENT Left Ventricular Ejection Fraction: by Echo 65 % Normal LV wall motion Normal Left Ventricular systolic function LEFT MAIN: Mild calcification LEFT ANTERIOR DESCENDING ARTERY: MID LAD: 70 % Stenosis CIRCUMFLEX ARTERY: Angiographically normal RIGHT CORONARY ARTERY: Mild luminal irregularities less than 30% VALVE FINDINGS: Aortic Valve Calcification - moderate Aortic Valve Stenosis - severe COMPLICATIONS No Complications PROCEDURE MEDICATIONS Versed 1 mg IV Oxygen: 2 L/min via nasal cannula SUMMARY OF HEMODYNAMIC DATA Time AIR REST ECG 09:39:00 AO 121/71 (95) SA 11:17:55 Signed By Amari Guzman MD On 01/23/2020 11:48:11 AM Amari Guzman MD
== END 2020-01-23 13:15 | disposition home or self-care (01) ==
LOC: CLSP 09:02
PROVIDERS: PCP Family Medicine; Referring Provider Internal Medicine Cardiovascular Disease; Visit Provider Internal Medicine Cardiovascular Disease
DX: I35.0 Nonrheumatic aortic (valve) stenosis (principal); I25.10 Atherosclerotic heart disease of native coronary artery without angina pectoris; R06.02 Shortness of breath; I10 Essential (primary) hypertension; K75.81 Nonalcoholic steatohepatitis (NASH); E11.9 Type 2 diabetes mellitus without complications; J45.909 Unspecified asthma, uncomplicated; K74.60 Unspecified cirrhosis of liver; R53.82 Chronic fatigue, unspecified; K21.9 Gastro-esophageal reflux disease without esophagitis; R42 Dizziness and giddiness; E03.9 Hypothyroidism, unspecified
CPT/HCPCS: 36415; 71046; 80048; 82962; 85025; 93458; 99152; 99153; J7040; C1769; C1894; Q9967

== ENCOUNTER → 2020-01-30 16:11 | Outpatient (CLI) | payer MEDICARE, SELFPAY ==
[2019-11-15 12:57] VITALS: BMI 28.7
[2020-01-20 12:39] VITALS: BMI 30.2
[2020-01-30 17:27] LABS: Hemoglobin 14.3 g/dL (12.0-15.0); Mean Corp Hgb Conc 35.8 g/dL (32-36); Mean Corpuscular Hgb 36.3 pg (27.0-32.0); Mean Corpuscular Volume 101.5 fL (81-99); Mean Platelet Vol. 9.8 fl (6.2-12.0); Platelet Count 101 K/mm3 (150-450); RBC Distribution Width CV 14.1 % (11.6-14.6); RBC Distribution Width SD 51.5 fl (35.1-43.9); Red Blood Count 3.94 M/mm3 (4.2-5.4); White Blood Count 4.1 K/mm3 (4.4-11.0)
[2020-01-30 17:32] LABS: International Normalized Ratio 1.4
[2020-01-30 17:33] LABS: Partial Thromboplast Time 40.1 Seconds (24.1-36.2)
[2020-01-30 17:46] LABS: ALB/GLOB Ratio 0.8 RATIO (0.9-2.4); AST(SGOT) 31 U/L (15-37); Alanine Aminotransfer ALT/SGPT 18 U/L (13-56); Albumin, Serum 3.1 g/dL (3.2-5.0); Alkaline Phosphatase 127 U/L (45-117); Anion Gap 4 (5-15); BUN 10 mg/dL (7-18); BUN/Creat Ratio 14.4 RATIO (10-20); Calcium,Total 8.5 mg/dL (8.5-10.1); Chloride 104 mmol/L (98-107); EST Glomerular Filtration Rate 87 mL/min (>60); Est Glom Filt Rate - Afr Amer 105 mL/min (>60); Globulin 4.1 g/dL (2.2-4.2); Glucose 85 mg/dL (74-106); Potassium 3.3 mmol/L (3.5-5.1); Protein, Total 7.2 g/dL (6.4-8.2); Sodium Level 138 mmol/L (136-145); Thyroid Stim Hormone (TSH) 3.82 uIU/mL (0.358-3.74)
[2020-02-01 06:13] LABS: AFP, Tumor Marker 2.2 ng/mL (0.0-8.3)
== END ==
PROVIDERS: PCP Family Medicine; Referring Provider Family Medicine; Visit Provider Family Medicine
DX: E03.9 Hypothyroidism, unspecified (principal); E87.6 Hypokalemia; K74.60 Unspecified cirrhosis of liver
CPT/HCPCS: 36415; 80053; 82105; 84443; 85027; 85610; 85730

== ENCOUNTER → 2020-02-15 16:07 | Outpatient (CLI) | payer MEDICARE, SELFPAY ==
[2020-01-20 12:39] VITALS: BMI 30.2
[2020-02-15 18:19] LABS: Anion Gap 6 (5-15); BUN 15 mg/dL (7-18); BUN/Creat Ratio 20.4 RATIO (10-20); Calcium,Total 8.4 mg/dL (8.5-10.1); Chloride 110 mmol/L (98-107); Creatinine, Serum 0.73 mg/dL (0.55-1.02); EST Glomerular Filtration Rate 82 mL/min (>60); Est Glom Filt Rate - Afr Amer 99 mL/min (>60); Glucose 154 mg/dL (74-106); Potassium 3.1 mmol/L (3.5-5.1); Sodium Level 142 mmol/L (136-145); Thyroid Stim Hormone (TSH) 2.11 uIU/mL (0.358-3.74)
== END ==
PROVIDERS: PCP Family Medicine; Referring Provider Family Medicine; Visit Provider Family Medicine
DX: E87.6 Hypokalemia (principal); E03.9 Hypothyroidism, unspecified
CPT/HCPCS: 36415; 80048; 84443

== ENCOUNTER → 2020-04-13 06:37 | Outpatient (CLI) | payer MEDICARE, SELFPAY ==
[2020-01-20 12:39] VITALS: BMI 30.2
--- NOTE | 2020-04-13 07:03 | MRI_ITS ---
STUDY: MRI ABDOMEN WITH AND WITHOUT CONTRAST REASON FOR EXAM: Female, 74 years old. cirrhosis PROGRESSION, NO NEW COMPLAINTS TECHNIQUE: Standardized fat and water weighted pulse sequences were obtained in all 3 orthogonal planes post contrast administration. IV 14cc dotarem was administered for the contrast portion of the examination. COMPARISON: MRI 09/01/2017, ultrasound 12/28/2019 FINDINGS: There are trace bilateral pleural effusions. Small, heterogeneous liver with micronodular borders redemonstrated with small volume perihepatic ascites and perisplenic ascites new since prior MRI. Upper abdominal and lower paraesophageal varicosities are redemonstrated. The portal vein does not clearly enhance and may be very small in caliber versus thrombosed versus slow flow, stable since prior MRI. Geographic area of amorphous increased T2 signal intensity in segment 8 of the right hepatic lobe is evident on image 6 of series 4 with prominent T2 bright serpiginous structures likely representing dilated vessels and may represent vascular shunting. Following IV contrast in this same region, there is an enhancing lesion measuring 1.4 x 1.4 cm (image 17-19 series 1001) is new since the prior study. Enhancement is somewhat heterogeneous and diffuse and greater than immediately adjacent hepatic parenchyma. Mild degree of washout with near isointensity/enhancement compared to the adjacent liver. The gallbladder is absent. The spleen remains moderately enlarged with craniocaudal dimension measuring 16 cm. Atrophy of the pancreas but no pancreatic masses. Normal bilateral adrenal glands. Normal right kidney. Normal left kidney. Visualized hollow viscus structures are unremarkable. MRI/MRI Abd WITH and W/O Contrast IMPRESSION: 1. No enhancing mass of segment 8 right hepatic lobe (1.4 cm) with adjacent neovascularity (versus intraparenchymal varicosities) and related transient hyper intensity difference. LiverRADS 3 (intermediate probability for HCC). Recommend follow-up MRI in 3-6 months. 2. Mild ascites and trace pleural effusions, new. 3. Cirrhotic liver with splenomegaly. Small caliber/slow flow versus thrombosed portal vein with upper abdominal and paraesophageal varicosities. Electronically Signed: Kodak Barber MD (Brooks) at 9:45 EDT , Service support ,
[2020-04-13 08:31] LABS: CREATININE FINGERSTICK 0.8 mg/dL (0.55-1.02); EGFR FINGERSTICK > 60.0000 mL/min (>60)
== END ==
PROVIDERS: PCP Family Medicine; Referring Provider Internal Medicine Gastroenterology; Visit Provider Internal Medicine Gastroenterology
DX: K74.60 Unspecified cirrhosis of liver (principal)
CPT/HCPCS: 74183; A9575; A4216

== ENCOUNTER → 2020-04-18 16:28 | Outpatient (CLI) | payer MEDICARE, SELFPAY ==
[2020-01-20 12:39] VITALS: BMI 30.2
[2020-04-18 18:41] LABS: Anion Gap 6 (5-15); BUN 8 mg/dL (7-18); Calcium,Total 8.7 mg/dL (8.5-10.1); Chloride 102 mmol/L (98-107); EST Glomerular Filtration Rate 74 mL/min (>60); Est Glom Filt Rate - Afr Amer 89 mL/min (>60); Glucose 115 mg/dL (74-106); Potassium 2.8 mmol/L (3.5-5.1); Sodium Level 139 mmol/L (136-145)
== END ==
PROVIDERS: PCP Family Medicine; Referring Provider Internal Medicine Gastroenterology; Visit Provider Internal Medicine Gastroenterology
DX: K74.60 Unspecified cirrhosis of liver (principal); Z79.899 Other long term (current) drug therapy
CPT/HCPCS: 80048